=== PATIENT | male | born 1965 | race African-American/Black ===

== ENCOUNTER 2024-09-05 16:58 | Inpatient (IN) ==
--- NOTE | 2024-09-05 18:15 | Emergency Department Note ---
HPI - SOB/Dyspnea General Chief Complaint: Weakness Stated Complaint: N/V and fever Source: patient Mode of arrival: walk-in Limitations: no limitations History of Present Illness HPI Narrative: Patient is 55 years old male with no significant past medical history, Patient is a poor historian.Patient appears weak malnourished and unable to participate appropriately in my conversation. MD elicited complaint: Reports shortness of breath and cough Onset (ago): day(s) Timing: Reports constant Severity: mild-moderate Exacerbating factors: Reports nothing Relieving factors: Reports nothing Associated symptoms: Reports cough and abdominal pain Treatment prior to arrival: Reports none Related Data Home oxygen amount: none Home Medications Medication Instructions Recorded Confirmed No Known Home Medication 09/06/24 09/06/24 Allergies Allergy/AdvReac Type Severity Reaction Status Date / Time No Known Drug Allergies Allergy Verified 09/05/24 19:10 Review of Systems Status of ROS 10 or more systems reviewed and unremark able except as noted in history and below Constitutional Reports: fever, chills, malaise and change in sleep pattern Eyes Denies: change in vision, blurry vision, blind spots or light sensitivity Ears, nose, mouth, and throat Denies: throat pain, neck pain, throat swelling or difficulty swallowing Cardiovascular Denies: chest pain, palpitations, edema or swelling of feet/ankles Respiratory Reports: shortness of breath and cough Gastrointestinal Reports: abdominal pain, nausea and vomiting Genitourinary Reports: urinary urgency Musculoskeletal Denies: back pain, neck pain, extremity pain or extremity swelling Integumentary/Breast Denies: rash, itching, redness or skin pain Neurological Denies: headache, numbness in extremities or weakness in extremities Psychiatric Denies: anxiety, mood swings, panic attacks or change in sleep pattern Endocrine Denies: excessive urination, excessive thirst or fatigue Hematologic/Lymphatic Denies: easy bruising, easy bleeding or enlarged lymph nodes Allergic/Immunologic Denies: hives, throat swelling, tongue swelling or facial swelling [facility]SH [facility] Medical History (Updated 09/06/24 @ 12:29 by PRO Escobedo) Patient denies medical problems Social History Smoking status: current every day smoker Highest level of school completed/degree received: decline to answer Feel stressed/tense/nervous/anxious/difficulty sleeping: not at all Due to disability, difficulty making decisions: No Exam Exam: Ill-appearing patient is alert in semirecumbent position in hospital bed. Constitutional: Vital Signs - 24 hr 09/05/24 17:19 09/05/24 19:00 09/05/24 19:30 Temperature 97.1 F L Pulse Rate 104 H 101 H 93 H Respiratory Rate 24 16 16 Blood Pressure 125/81 131/77 124/84 Pulse Oximetry 95 96 96 Oxygen Delivery Me thod Room Air 09/05/24 20:00 09/05/24 21:00 09/05/24 22:00 Temperature Pulse Rate 97 H 93 H 99 H Respiratory Rate 16 17 16 Blood Pressure 120/75 130/84 121/76 Pulse Oximetry 97 99 97 Oxygen Delivery Me thod 09/05/24 23:00 09/06/24 00:00 Temperature Pulse Rate 94 H 99 H Respiratory Rate 18 19 Blood Pressure 98/69 108/72 Pulse Oximetry 100 99 Oxygen Delivery Me thod HENMT: normocephalic, head/scalp atraumatic, hearing grossly normal bilaterally and external ears normal Eyes: PERRL, EOMs intact bilaterally, conjunctivae normal and no scleral icterus Neck/C-Spine: visual inspection normal, trachea midline and cervical spine nontender Lymph: no lymphadenopathy noted and no lymphedema noted Chest: inspection of chest normal and palpation of chest normal Respiratory: breath sounds equal bilaterally, normal respiratory effort and clear to auscultation bilaterally Cardiovascular: normal heart rate noted, regular rhythm noted, no gallop and no rub Gastrointestinal: abdomen normal to inspection and abdomen soft to palpation Genitourinary: no CVA tenderness, bladder normal to palpation and external appearance normal Back/Pelvis: spine normal to inspection and no thoracic spine tenderness Extremities: normal to inspection, normal to palpation, no tenderness and full ROM Neurology: landcare facilitator II-XII intact, no movement abnormality noted and no focal motor deficit noted Psychiatry: mental status grossly normal, oriented x3, thought process normal and cooperative Feel stressed/tense/nervous/anxious/difficulty sleeping: not at all Due to disability, difficulty making decisions: No Skin: skin color normal, no rash and no lesions Course Course Hospital Course: This patient presents with complaint of weakness. And not feeling well for the past 3 days. Patient White blood cell count is 20.4 D-dimer is elevated at 2750 for this reason we obtained a CT of the chest which showed no PE. Potassium is slightly elevated at 5.7 we have treated the patient with Kayexalate, insulin, furosemide, calcium gluconate Patient BUN is elevated at 81 and creatinine of 2.2. This is likely due to dehydration patient has been started on fluid hydration. Patient is no known diabetic however his blood glucose is 446. Of also ordered hemoglobin A1c which is 8.0. Patient's lactic acid is 2.9. Serum Magnesium If 3.7. We have started the patient on sepsis protocol will be initiated fluid hydration and antibiotics. Vital Signs Vital signs: Vital Signs Temperature 97.1 F L 09/05/24 17:19 Pulse Rate 104 H 09/05/24 17:19 Respiratory Rate 24 09/05/24 17:19 Blood Pressure 125/81 09/05/24 17:19 Pulse Oximetry 95 09/05/24 17:19 Oxygen Delivery Method Room Air 09/05/24 17:19 Temperature 98.5 F 09/06/24 12:00 Pulse Rate 93 H 09/06/24 12:00 Respiratory Rate 20 09/06/24 12:00 Blood Pressure 108/64 09/06/24 13:15 Pulse Oximetry 90 L 09/06/24 12:00 Oxygen Delivery Method Room Air 09/06/24 12:00 Oxygen Flow Rate 2 09/06/24 01:12 MDM - SOB/Dyspnea Differential Diagnosis Differential diagnosis: Likely community acquired pneumonia and pulmonary embolism Lab Data Labs: Lab Results 09/05/24 09/05/24 09/05/24 Range/Units 18:50 20:06 20:35 WBC 20.4 H* (3.7-9.6) K/uL RBC 5.7 (4.40-5.80) M/uL Hgb 17.0 (14.0-17.4) gm/dL Hct 50.9 H (41.3-50.1) % MCV 89.7 (81.9-96.5) fl MCH 29.9 (27.6-33.7) pg MCHC 33.4 (33.0-35.7) g/dl RDW 13.2 (11.0-14.8) % Plt Count 289 (142-355) K/uL MPV 11.0 H (6.0-10.4) fl Gran % 77.4 H (49.1-73.1) % Lymph % (Auto) 3.9 L (17.6-39.05) % Maury % (Auto) 18.4 H (4.5-10.7) % Eos % (Auto) 0.0 (0.0-4.0) % Baso % (Auto) 0.3 (0.0-1.3) Lymph # (Auto) 0.8 (0.8-2.9) Maury # (Auto) 3.8 H (0.2-0.8) Eos # (Auto) 0.0 (0.0-0.3) Baso # (Auto) 0.1 (0.0-0.1) Absolute Gran (auto) 15.8 H (2.0-6.2) D-Dimer 2750 H (100-600) ng/mL Sodium 136 (136-145) mmol/L Potassium 5.7 H (3.6-5.2) mmol/L Chloride 99.0 (98-107) mmol/L Carbon Dioxide 27 (21-32) mmol/L Anion Gap 10.0 (4-14) mEq/L BUN 81 H* (7-18) mg/dL Creatinine 2.2 H (0.6-1.3) mg/dL Estimated GFR 33.7 (>59.9) Glucose 446 H* (70-110) mg/dL Hemoglobin A1c 8.0 H (4.8-6.0) % Lactic Acid 2.9 H (0.27-1.43) mmol/L Calcium 9.2 (8.5-10.1) mg/dL Phosphorus 3.8 (2.5-4.9) mg/dL Magnesium 3.7 H* (1.8-2.4) mg/dL Total Bilirubin 1.08 H (0.0-1.0) mg/dL AST 46 H (15-37) U/L ALT 41 (30-65) U/L Alkaline Phosphatase 77 (50-136) U/L Total Creatine Kinase 185 (39-308) U/L B-Natriuretic Peptide 43.1 (0-100) pg/mL Total Protein 9.0 H (6.4-8.2) g/dL Albumin 2.7 L (3.4-5.0) g/dL Urine Color Yellow (STRAW/YELL.) Urine Appearance Clear (CLEAR) Ur Specific Errol 1.010 (1.001-1.035) Urine Protein 4+ (NEGATIVE) Urine Glucose (UA) 4+ (NORMAL) Urine Ketones Moderate (NEGATIVE) Urine Occult Blood 4+ (NEG - TRACE) Urine Nitrite Negative (NEGATIVE) Urine Bilirubin Negative (NEGATIVE) Urine Urobilinogen Normal (NORMAL) Ur Leukocyte Esterase Negative (NEGATIVE) Urine RBC 0 - 2 (0 - 5) Urine WBC 0 - 2 ( 0 - 5) Ur Epithelial Cells Negative (Few/HPF) Amorphous Sediment Negative (Negative) Urine Bacteria Few (Negative) Urine Mucus Negative (Negative) Urine Trichomonas Negative (Negative) Urine Yeast Negative (Negative) Fluid pH .0 (5 - 9) Urine Opiates Screen (NEGATIVE) Urine Methadone Screen (NEGATIVE) Barbiturate Screen (NEGATIVE) Ur Phencyclidine Scrn (NEGATIVE) Amphetamines Screen (NEGATIVE) U Benzodiazepines Scrn (NEGATIVE) Urine Cocaine Screen (NEGATIVE) U Marijuana (THC) Screen (NEGATIVE) HIV 1&2 Antibody Non reactive (NonReactive) 09/06/24 Range/Units 00:01 WBC (3.7-9.6) K/uL RBC (4.40-5.80) M/uL Hgb (14.0-17.4) gm/dL Hct (41.3-50.1) % MCV (81.9-96.5) fl MCH (27.6-33.7) pg MCHC (33.0-35.7) g/dl RDW (11.0-14.8) % Plt Count (142-355) K/uL MPV (6.0-10.4) fl Gran % (49.1-73.1) % Lymph % (Auto) (17.6-39.05) % Maury % (Auto) (4.5-10.7) % Eos % (Auto) (0.0-4.0) % Baso % (Auto) (0.0-1.3) Lymph # (Auto) (0.8-2.9) Maury # (Auto) (0.2-0.8) Eos # (Auto) (0.0-0.3) Baso # (Auto) (0.0-0.1) Absolute Gran (auto) (2.0-6.2) D-Dimer (100-600) ng/mL Sodium (136-145) mmol/L Potassium (3.6-5.2) mmol/L Chloride (98-107) mmol/L Carbon Dioxide (21-32) mmol/L Anion Gap (4-14) mEq/L BUN (7-18) mg/dL Creatinine (0.6-1.3) mg/dL Estimated GFR (>59.9) Glucose (70-110) mg/dL Hemoglobin A1c (4.8-6.0) % Lactic Acid (0.27-1.43) mmol/L Calcium (8.5-10.1) mg/dL Phosphorus (2.5-4.9) mg/dL Magnesium (1.8-2.4) mg/dL Total Bilirubin (0.0-1.0) mg/dL AST (15-37) U/L ALT (30-65) U/L Alkaline Phosphatase (50-136) U/L Total Creatine Kinase (39-308) U/L B-Natriuretic Peptide (0-100) pg/mL Total Protein (6.4-8.2) g/dL Albumin (3.4-5.0) g/dL Urine Color (STRAW/YELL.) Urine Appearance (CLEAR) Ur Specific Errol (1.001-1.035) Urine Protein (NEGATIVE) Urine Glucose (UA) (NORMAL) Urine Ketones (NEGATIVE) Urine Occult Blood (NEG - TRACE) Urine Nitrite (NEGATIVE) Urine Bilirubin (NEGATIVE) Urine Urobilinogen (NORMAL) Ur Leukocyte Esterase (NEGATIVE) Urine RBC (0 - 5) Urine WBC ( 0 - 5) Ur Epithelial Cells (Few/HPF) Amorphous Sediment (Negative) Urine Bacteria (Negative) Urine Mucus (Negative) Urine Trichomonas (Negative) Urine Yeast (Negative) Fluid pH (5 - 9) Urine Opiates Screen Neg. (NEGATIVE) Urine Methadone Screen Neg. (NEGATIVE) Barbiturate Screen Neg. (NEGATIVE) Ur Phencyclidine Scrn Neg. (NEGATIVE) Amphetamines Screen Neg. (NEGATIVE) U Benzodiazepines Scrn Neg. (NEGATIVE) Urine Cocaine Screen Pos. (NEGATIVE) U Marijuana (THC) Screen Neg. (NEGATIVE) HIV 1&2 Antibody (NonReactive) Imaging Data Imaging ordered: Chest x-ray, CT scan - abdomen and other (CT angiogram PE protocol) Attestation: I have reviewed the pertinent imaging results. Radiologist's impression: EXAM: CT ANGIO CHEST PE PROTOCOL HISTORY: Shortness of breath COMPARISON: Chest radiograph series from September 05, 2024 TECHNIQUE: Axial CT images of the chest were obtained after the administration of IV contrast utilizing a CTA protocol. 3D MIPS were performed and reviewed for further evaluation. Radiation dose: 444.2 mGy-cm total DLP FINDINGS: No significant pericardial effusion. No mediastinal or hilar lymphadenopathy. Aorta is normal in caliber without dissection. Pulmonary arteries are normal in caliber without filling defects to suggest a pulmonary embolus. Airways are widely patent. Thyroid appears normal. No pleural effusion. Mild centrilobular emphysema. Centrilobular infiltrates in the middle lobe, lingula and lower lobes; [id number]. No pneumothorax. No concerning lung parenchymal lesion identified. Patchy low-attenuation areas in the spleen; nonspecific. Otherwise, the imaged portion of the upper abdomen is unremarkable. No acute osseous abnormality. IMPRESSION: 1. No pulmonary embolus identified. 2. Centrilobular infiltrates in the middle lobe, lingula and lower lobes; [id number]. Findings could represent an atypical/viral infectious process. 3. Mild centrilobular emphysema. 4. Nonspecific patchy areas of decreased attenuation in the spleen. Findings could represent a normal variant appearance but could be further evaluated for areas of ischemia with a dedicated multiphase contrast-enhanced study of the upper abdomen. Discharge Plan Discharge Patient Disposition: Admitted As Inpatient Condition: Other Clinical Impression: Sepsis, Pneumonia, Hyperkalemia, Leukocytosis, Acute kidney injury, Uncontrolled diabetes mellitus Interventions: ED Discharge Assessment Last Done: 09/06/24 02:00 ED Discharge Vital Sign Last Done: 09/06/24 02:00 Emergency Department Charge Sheet Last Done: 09/05/24 23:55 Time of Disposition: 00:23 Discharge Date/Time: 09/06/24 02:00
[2024-09-05 19:11] LABS: Monocytes #(Absolute)- Auto 3.8 (0.2-0.8)
[2024-09-05 19:12] LABS: Basophils #(Absolute) Auto 0.1 (0.0-0.1); Basophils%(Percent) Auto 0.3 (0.0-1.3); Granulocytes % - Auto 77.4 % (49.1-73.1); Granulocytes#(Absolute)- Auto 15.8 (2.0-6.2); Hematocrit 50.9 % (41.3-50.1); Mean Corpuscular Volume 89.7 fl (81.9-96.5); Monocytes %(Percent)- Auto 18.4 % (4.5-10.7); Platelet Count 289 K/uL (142-355)
[2024-09-05 19:14] LABS: Potassium 5.7 mmol/L (3.6-5.2)
[2024-09-05 19:21] LABS: White Blood Count 20.4 K/uL (3.7-9.6)
[2024-09-05] MEDS ORDERED: 0.9 % SODIUM CHLORIDE 1000 ML 1,000 ML IV SCH (20:15)
[2024-09-05] MEDS ORDERED: VANCOMYCIN HCL 1,000 MG VIAL IV ONE (20:28)
[2024-09-05] MEDS ORDERED: 0.9 % SODIUM CHLORIDE MB+ 50 ML IV ONE (20:28)
[2024-09-05] MEDS ORDERED: 0.9 % SODIUM CHLORIDE 250 ML IV ONE (20:28)
[2024-09-05] MEDS ORDERED: CEFTRIAXONE SODIUM 1 GM VIAL ONE (20:28)
[2024-09-05] MEDS ORDERED: 0.9 % SODIUM CHLORIDE 1000 ML 1,000 ML IV ONE ×2 (20:28→20:35)
[2024-09-05] MEDS: SODIUM CHLORIDE MB 0.9% IV SCH (20:31)
[2024-09-05] MEDS ORDERED: CEFEPIME HCL 1 GM VIAL ONE (20:31)
[2024-09-05] MEDS: CEFEPIME HCL IV SCH (20:31)
[2024-09-05] MEDS: 0.9 % SODIUM CHLORIDE 1000 ML 1,000 ML IV ONE (20:34)
[2024-09-05 21:08] LABS: Urine Appearance CLEAR (CLEAR); Urine Blood 4+ (NEG - TRACE); Urine Color YELLOW (STRAW/YELL.); Urine Urobilinogen Normal (NORMAL)
[2024-09-05 21:20] LABS: Urine Amorphous Sediment Negative (Negative); Urine Yeast Negative (Negative)
[2024-09-05] MEDS: VANCOMYCIN/WATER 750 MG 750 MG/150 ML PIGGYBACK IV SCH (21:54)
[2024-09-05] MEDS ORDERED: CALCIUM GLUCONATE 1,000 MG/10 ML VIAL ONE (23:29)
[2024-09-05] MEDS ORDERED: SODIUM BICARBONATE 1 MEQ/ML VIAL ONE (23:30)
[2024-09-05] MEDS ORDERED: FUROSEMIDE 40 MG/4 ML VIAL ONE (23:30)
[2024-09-05] MEDS ORDERED: 0.9 % SODIUM CHLORIDE 100ML 100 ML IV ONE (23:31)
[2024-09-05] MEDS ORDERED: SODIUM POLYSTYRENE SULFONATE 15 GM/60 ML ORAL.SUSP ONE (23:36)
[2024-09-05] MEDS ORDERED: DEXTROSE 5 % IN WATER 1,000 ML IV ONE (23:40)
[2024-09-05] MEDS: CALCIUM GLUCONATE 1,000 MG in 0.9 % SODIUM CHLORIDE 100ML 100 ML IV ONE (23:59)
[2024-09-06] MEDS ORDERED: ONDANSETRON HCL/PF 4 MG/2 ML VIAL INJ PRN (00:04)
[2024-09-06] MEDS ORDERED: ACETAMINOPHEN 500 MG TABLET PO PRN (00:04)
[2024-09-06] MEDS ORDERED: 0.9 % SODIUM CHLORIDE 1000 ML 1,000 ML IV SCH (00:30)
[2024-09-06] MEDS: 0.9 % SODIUM CHLORIDE 1000 ML 1,000 ML IV ONE (00:46)
[2024-09-06] MEDS: SODIUM BICARBONATE IV SCH (01:40)
[2024-09-06] MEDS: FUROSEMIDE 40 MG/4 ML VIAL IV ONE (01:40)
[2024-09-06] MEDS: WATER IV SCH (01:40)
[2024-09-06] MEDS: DEXTROSE 5% IV SCH (01:40)
[2024-09-06] MEDS: SODIUM POLYSTYRENE SULFONATE 15 GM/60 ML ORAL.SUSP PO ONE (01:45)
[2024-09-06] MEDS: 0.9 % SODIUM CHLORIDE 1000 ML 1,000 ML IV SCH (02:28)
[2024-09-06] MEDS: VANCOMYCIN HCL 1 MG in 0.9 % SODIUM CHLORIDE 250 ML IV SCH (03:23)
[2024-09-06 04:42] LABS: Amphetamine Screen Urine NEG. (NEGATIVE); Cannabinoid Screen Urine NEG. (NEGATIVE); Cocaine Screen Urine POS. (NEGATIVE); Methadone Screen Urine NEG. (NEGATIVE); Opiate Screen Urine NEG. (NEGATIVE)
[2024-09-06 05:08] LABS: Monocytes #(Absolute)- Auto 4.6 (0.2-0.8)
[2024-09-06 05:10] LABS: Basophils%(Percent) Auto 0.1 (0.0-1.3); Granulocytes % - Auto 76.8 % (49.1-73.1); Granulocytes#(Absolute)- Auto 18.4 (2.0-6.2); Hematocrit 47.1 % (41.3-50.1); Mean Corpuscular Volume 89.3 fl (81.9-96.5); Monocytes %(Percent)- Auto 19.2 % (4.5-10.7); Platelet Count 313 K/uL (142-355)
[2024-09-06 05:28] LABS: White Blood Count 24.5 K/uL (3.7-9.6)
[2024-09-06 05:36] LABS: Potassium 4.1 mmol/L (3.6-5.2)
[2024-09-06] MEDS: SODIUM CHLORIDE MB 0.9% IV SCH (05:57)
[2024-09-06] MEDS: CEFEPIME HCL IV SCH (05:57)
[2024-09-06] MEDS: ENOXAPARIN SODIUM 40 MG/0.4 ML SYRINGE SUBQ SCH (12:18)
--- NOTE | 2024-09-06 12:35 | History & Physical Report ---
H&P: HPI History of Present Illness Chief complaint: pneumonia Narrative: Patient is 55 years old male with no significant past medical history, Patient is a poor historian. Patient appears weak malnourished and unable to participate appropriately in my conversation. He states it hurts when he coughs, mucus is b eing expelled, experiencing flu symptoms, and provider observed wheezing on inspiratory and expiratory. Lab work reflects septic pneumonia and lactic acidosis. Admitted patient to med/surg as inpatient for treatment. Review of Systems Status of ROS 10 or more systems reviewed and unremark able except as noted in history and below Constitutional Reports: fever, chills, malaise and change in sleep pattern; Denies: fatigue Eyes Denies: change in vision, blurry vision, blind spots or light sensitivity Ears, nose, mouth, and throat Reports: dry mouth; Denies: throat pain, neck pain, throat swelling or difficulty swallowing Cardiovascular Reports: shortness of breath with exertion; Denies: chest pain, palpitations, edema or swelling of feet/ankles Respiratory Reports: shortness of breath, cough, wheezing and chest congestion Gastrointestinal Reports: abdominal pain and vomiting; Denies: nausea or difficulty swallowing Genitourinary Reports: urinary urgency Musculoskeletal Denies: back pain, neck pain, extremity pain or extremity swelling Integumentary/Breast Denies: rash, itching, redness or skin pain Neurological Denies: headache, numbness in extremities or weakness in extremities Psychiatric Denies: anxiety, mood swings, panic attacks or change in sleep pattern Endocrine Denies: excessive urination, excessive thirst or fatigue Hematologic/Lymphatic Denies: easy bruising, easy bleeding or enlarged lymph nodes Allergic/Immunologic Denies: hives, throat swelling, tongue swelling or facial swelling [facility] Medical History (Updated 09/06/24 @ 12:29 by PRO Escobedo) Patient denies medical problems Social History Smoking status: current every day smoker Highest level of school completed/degree received: decline to answer Feel stressed/tense/nervous/anxious/difficulty sleeping: not at all Due to disability, difficulty making decisions: No Meds Home Medications and Allergies Home Medications Medication Instructions Recorded Confirmed Type No Known Home Medication 09/06/24 09/06/24 History Allergies Allergy/AdvReac Type Severity Reaction Status Date / Time No Known Drug Allergies Allergy Verified 09/05/24 19:10 Exam Exam: Patient in low byrne's position upon entering room for exam. Patient Constitutional: abnormal general appearance (chronically ill), (lethargic) and (appears older than stated age), distress noted (mild), average body habitus, no limitations and alert Vital Signs - 24 hr 09/05/24 17:19 09/05/24 19:00 09/05/24 19:30 Temperature 97.1 F L Pulse Rate 104 H 101 H 93 H Pulse Rate [Brachi al] Respiratory Rate 24 16 16 Blood Pressure 125/81 131/77 124/84 Blood Pressure [Le ft Arm] Pulse Oximetry 95 96 96 Oxygen Delivery Me thod Room Air Oxygen Flow Rate 09/05/24 20:00 09/05/24 21:00 09/05/24 22:00 Temperature Pulse Rate 97 H 93 H 99 H Pulse Rate [Brachi al] Respiratory Rate 16 17 16 Blood Pressure 120/75 130/84 121/76 Blood Pressure [Le ft Arm] Pulse Oximetry 97 99 97 Oxygen Delivery Me thod Oxygen Flow Rate 09/05/24 23:00 09/06/24 00:00 09/06/24 01:00 Temperature Pulse Rate 94 H 99 H 92 H Pulse Rate [Brachi al] Respiratory Rate 18 19 17 Blood Pressure 98/69 108/72 125/81 Blood Pressure [Le ft Arm] Pulse Oximetry 100 99 98 Oxygen Delivery Me thod Oxygen Flow Rate 09/06/24 01:12 09/06/24 01:40 09/06/24 01:59 Temperature 97.9 F Pulse Rate Pulse Rate [Brachi al] 93 H Respiratory Rate 17 15 Blood Pressure 108/72 Blood Pressure [Le ft Arm] 146/85 Pulse Oximetry 92 L Oxygen Delivery Me thod Nasal Cannula Room Air Oxygen Flow Rate 2 09/06/24 02:00 09/06/24 02:00 09/06/24 03:19 Temperature 97.9 F Pulse Rate 99 H 99 H Pulse Rate [Brachi al] Respiratory Rate 18 18 Blood Pressure 118/82 146/85 146/85 Blood Pressure [Le ft Arm] Pulse Oximetry 97 97 Oxygen Delivery Me thod Oxygen Flow Rate 09/06/24 08:00 Temperature 98.7 F Pulse Rate Pulse Rate [Brachi al] 92 H Respiratory Rate 19 Blood Pressure Blood Pressure [Le ft Arm] 119/79 Pulse Oximetry 91 L Oxygen Delivery Me thod Room Air Oxygen Flow Rate HENMT: normocephalic, head/scalp atraumatic, hearing grossly normal bilaterally and external ears normal Eyes: PERRL, EOMs intact bilaterally, conjunctivae normal and no scleral icterus Neck/C-Spine: visual inspection normal, trachea midline and cervical spine nontender Lymph: no lymphadenopathy noted and no lymphedema noted Chest: inspection of chest normal and palpation of chest normal Respiratory: breath sounds equal bilaterally, normal respiratory effort, auscultation abnormal (diminished breath sound) and wheezing noted (expiratory wheezes) and (inspiratory wheezes) Cardiovascular: normal heart rate noted, regular rhythm noted, no gallop and no rub Gastrointestinal: abdomen normal to inspection and abdomen soft to palpation Genitourinary: no CVA tenderness, bladder normal to palpation and external appearance normal Back/Pelvis: spine normal to inspection and no thoracic spine tenderness Extremities: normal to inspection, normal to palpation, no tenderness and full ROM 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, no movement abnormality noted and no focal motor deficit noted Psychiatry: mental status grossly normal, oriented x3, thought process normal and cooperative Skin: skin color normal, no rash and no lesions Assessment and Plan Assessment and Plan (1) Sepsis due to pneumonia: Code(s): J18.9 - Pneumonia, unspecified organism; A41.9 - Sepsis, unspecified organism (2) Lactic acidosis: Code(s): E87.20 - Acidosis, unspecified (3) Pleurisy: Code(s): R09.1 - Pleurisy (4) Cough: Qualifiers: Cough type: acute Qualified Code(s): R05.1 - Acute cough Code(s): R05.9 - Cough, unspecified (5) Phlegm in throat: Code(s): R09.89 - Other specified symptoms and signs involving the circulatory and respiratory systems Plan Sodium Chloride 1,000 mls @ 100 mls/hr IV CONT Vancomycin/Water 750 mg in 150 mls @ 150 mls/hr IV Q24H Cefepime Hcl 1 gm in Sodium Chloride 50 mls @ 50 mls/hr IV Q8H Enoxaparin Sodium 40 mg SUBQ DAILY Acetaminophen 500 mg PO Q6H PRN Ibuprofen 600 mg PO Q6H PRN Ondansetron Hcl 4 mg INJ Q4H PRN Repeat in AM: CXR 2 View; Lactic Acid; CBC; and CMP Results Labs Labs: CBC WBC 24.5 K/uL (3.7-9.6) H* 09/06/24 04:45 RBC 5.3 M/uL (4.40-5.80) 09/06/24 04:45 Hgb 15.6 gm/dL (14.0-17.4) 09/06/24 04:45 Hct 47.1 % (41.3-50.1) 09/06/24 04:45 MCV 89.3 fl (81.9-96.5) 09/06/24 04:45 MCH 29.5 pg (27.6-33.7) 09/06/24 04:45 MCHC 33.1 g/dl (33.0-35.7) 09/06/24 04:45 RDW 12.9 % (11.0-14.8) 09/06/24 04:45 Plt Count 313 K/uL (142-355) 09/06/24 04:45 MPV 10.2 fl (6.0-10.4) 09/06/24 04:45 Gran % 76.8 % (49.1-73.1) H 09/06/24 04:45 Lymph % (Auto) 3.9 % (17.6-39.05) L 09/06/24 04:45 [place] % (Auto) 19.2 % (4.5-10.7) H 09/06/24 04:45 Eos % (Auto) 0.0 % (0.0-4.0) 09/06/24 04:45 Baso % (Auto) 0.1 (0.0-1.3) 09/06/24 04:45 Lymph # (Auto) 0.9 (0.8-2.9) 09/06/24 04:45 [place] # (Auto) 4.6 (0.2-0.8) H 09/06/24 04:45 Eos # (Auto) 0.0 (0.0-0.3) 09/06/24 04:45 Baso # (Auto) 0.0 (0.0-0.1) 09/06/24 04:45 Absolute Gran (auto) 18.4 (2.0-6.2) H 09/06/24 04:45 BMP Sodium 148 mmol/L (136-145) H 09/06/24 04:45 Potassium 4.1 mmol/L (3.6-5.2) 09/06/24 04:45 Chloride 110.0 mmol/L (98-107) H 09/06/24 04:45 Carbon Dioxide 27 mmol/L (21-32) 09/06/24 04:45 Anion Gap 11.0 mEq/L (4-14) 09/06/24 04:45 BUN 62 mg/dL (7-18) H 09/06/24 04:45 Creatinine 1.8 mg/dL (0.6-1.3) H 09/06/24 04:45 Estimated GFR 42.8 (>59.9) 09/06/24 04:45 Glucose 204 mg/dL (70-110) H 09/06/24 04:45 Hemoglobin A1c 8.0 % (4.8-6.0) H 09/05/24 18:50 Calcium 9.0 mg/dL (8.5-10.1) 09/06/24 04:45 Phosphorus 3.8 mg/dL (2.5-4.9) 09/05/24 20:06 Magnesium 3.7 mg/dL (1.8-2.4) H* 09/05/24 20:06 Total Bilirubin 1.11 mg/dL (0.0-1.0) H 09/06/24 04:45 AST 49 U/L (15-37) H 09/06/24 04:45 ALT 37 U/L (30-65) 09/06/24 04:45 Alkaline Phosphatase 72 U/L (50-136) 09/06/24 04:45 Total Protein 8.4 g/dL (6.4-8.2) H 09/06/24 04:45 Albumin 2.5 g/dL (3.4-5.0) L 09/06/24 04:45 Liver Function Total Bilirubin 1.11 mg/dL (0.0-1.0) H 09/06/24 04:45 AST 49 U/L (15-37) H 09/06/24 04:45 ALT 37 U/L (30-65) 09/06/24 04:45 Alkaline Phosphatase 72 U/L (50-136) 09/06/24 04:45 Total Protein 8.4 g/dL (6.4-8.2) H 09/06/24 04:45 Albumin 2.5 g/dL (3.4-5.0) L 09/06/24 04:45 Urine Urine Color Yellow (STRAW/YELL.) 09/05/24 20:35 Urine Appearance Clear (CLEAR) 09/05/24 20:35 Ur Specific [place] 1.010 (1.001-1.035) 09/05/24 20:35 Urine Protein 4+ (NEGATIVE) 09/05/24 20:35 Urine Glucose (UA) 4+ (NORMAL) 09/05/24 20:35 Urine Ketones Moderate (NEGATIVE) 09/05/24 20:35 Urine Occult Blood 4+ (NEG - TRACE) 09/05/24 20: Urine Nitrite Negative (NEGATIVE) 09/05/24 20: Urine Bilirubin Negative (NEGATIVE) 09/05/24 20:35 Urine Urobilinogen Normal (NORMAL) 09/05/24 20:35 Ur Leukocyte Esterase Negative (NEGATIVE) 09/05/24 20:35 Imaging Imaging ordered: Chest x-ray, CT scan - abdomen and CT scan - chest Radiologist's impression: XR CHEST 2V HISTORY: SOB, COUGH; CV/NB COMPARISON: 12/01/2022 FINDINGS: The trachea is midline. The cardiac silhouette is unremarkable . The lungs are clear without focal infiltrate or effusion. The bony thorax is unremarkable. IMPRESSION: Normal chest CT ABDOMEN PELVIS WO CON HISTORY: Abdominal pain, diarrhea COMPARISON: June 27, 2021 TECHNIQUE: Non-contrasted axial CT images of the abdomen and pelvis were obtained and reformatted into coronal and sagittal planes for further evaluation. Radiation dose: 523.1 mGy-cm total DLP FINDINGS: Diffuse bronchial wall thickening. Infiltrate in the lower aspect of the left lung. Few tiny patchy areas of airspace disease at the periphery of the right lower lobe. Stomach appears normal. Cyst in the left hepatic lobe. Otherwise, unremarkable appearance of the liver. Patchy low-attenuation areas in the spleen; nonspecific. Pancreas and adrenal glands are unremarkable. Gallbladder appears normal. No intra or extrahepatic biliary dilatation. Unremarkable appearance of the kidneys. No hydronephrosis, hydroureter or ureteral calculus. Unremarkable appearance of the urinary bladder. Normal appearance of the small and large bowel. Nonspecific enlargement of the prostate gland. No evidence of acute appendicitis. No pneumoperitoneum. No significant fluid collection. No adenopathy. No acute osseous abnormality. Chronic pars defects at L5 with grade 1 anterolisthesis. IMPRESSION: 1. Nonspecific patchy areas of decreased attenuation in the spleen. Findings could represent a normal variant appearance but could be further evaluated for areas of ischemia with a contrast-enhanced study. 2. Diffuse bronchial wall thickening. Infiltrate in the lower aspect of the left lung. Few tiny patchy areas of airspace disease at the periphery of the right lower lobe. Findings could represent the sequela of an atypical/viral infectious process or multifocal pneumonia. 3. Nonspecific enlargement of the prostate gland. CT ANGIO CHEST PE PROTOCOL HISTORY: Shortness of breath COMPARISON: Chest radiograph series from September 05, 2024 TECHNIQUE: Axial CT images of the chest were obtained after the administration of IV contrast utilizing a CTA protocol. 3D MIPS were performed and reviewed for further evaluation. Radiation dose: 444.2 mGy-cm total DLP FINDINGS: No significant pericardial effusion. No mediastinal or hilar lymphadenopathy. Aorta is normal in caliber without dissection. Pulmonary arteries are normal in caliber without filling defects to suggest a pulmonary embolus. Airways are widely patent. Thyroid appears normal. No pleural effusion. Mild centrilobular emphysema. Centrilobular infiltrates in the middle lobe, lingula and lower lobes; [id number]. No pneumothorax. No concerning lung parenchymal lesion identified. Patchy low-attenuation areas in the spleen; nonspecific. Otherwise, the imaged portion of the upper abdomen is unremarkable. No acute osseous abnormality. IMPRESSION: 1. No pulmonary embolus identified. 2. Centrilobular infiltrates in the middle lobe, lingula and lower lobes; [id number]. Findings could represent an atypical/viral infectious process. 3. Mild centrilobular emphysema. 4. Nonspecific patchy areas of decreased attenuation in the spleen. Findings could represent a normal variant appearance but could be further evaluated for areas of ischemia with a dedicated multiphase contrast-enhanced study of the upper abdomen.
[2024-09-07 05:22] LABS: Eosinophils%(Percent) Auto 0.1 % (0.0-4.0); Granulocytes#(Absolute)- Auto 17.6 (2.0-6.2); Monocytes #(Absolute)- Auto 3.9 (0.2-0.8)
[2024-09-07 05:24] LABS: Basophils%(Percent) Auto 0.2 (0.0-1.3); Granulocytes % - Auto 78.2 % (49.1-73.1); Hematocrit 38.6 % (41.3-50.1); Monocytes %(Percent)- Auto 17.2 % (4.5-10.7); Platelet Count 357 K/uL (142-355)
[2024-09-07 05:42] LABS: White Blood Count 22.4 K/uL (3.7-9.6)
[2024-09-07 05:46] LABS: Potassium 4.3 mmol/L (3.6-5.2)
[2024-09-07] MEDS: MUPIROCIN 22 GM OINT...G. TOPICAL SCH (11:06)
--- NOTE | 2024-09-07 13:39 | Progress Note ---
Progress Note: Subjective Subjective Interval history: Patient is a 59 year old male admitted to med/surg as inpatient for pneumonia. Patient has spouse at bedside this AM. Patient is not ambulating to go to the restroom, he is wearing a brief, patient also has 3 urinals around his bed. Spouse voiced a concern about "jared" on patient's penis and wanted to know why it was like that. Provider and nurse evaluated area of concern and deduced it was a cut of some kind prior to admission to the hospital. Area of concern will be cleaned, dried, and medicated. Exam Exam: Patient in low byrne's position upon entering room for exam. Spouse at bedside. Constitutional: abnormal general appearance (chronically ill), (lethargic) and (appears older than stated age), distress noted (mild), average body habitus, no limitations and alert Vital Signs - 24 hr 09/06/24 14:57 09/06/24 22:00 09/07/24 06:00 Temperature 100.1 F H 98.4 F 98.0 F Pulse Rate [Brachi al] 99 H 73 68 Respiratory Rate 20 18 19 Blood Pressure [Le ft Arm] 119/70 136/61 116/69 Pulse Oximetry 92 L 94 L 94 L Oxygen Delivery Me thod Room Air Room Air Room Air 09/07/24 08:11 09/07/24 12:00 Temperature 98.4 F 98.9 F Pulse Rate [Brachi al] 84 79 Respiratory Rate 19 18 Blood Pressure [Le ft Arm] 151/85 165/92 Pulse Oximetry 93 L 96 Oxygen Delivery Me thod Room Air Room Air HENMT: normocephalic, head/scalp atraumatic, hearing grossly normal bilaterally and external ears normal Eyes: PERRL, EOMs intact bilaterally, conjunctivae normal and no scleral icterus Neck/C-Spine: visual inspection normal, trachea midline and cervical spine nontender Lymph: no lymphadenopathy noted and no lymphedema noted Chest: inspection of chest normal and palpation of chest normal Respiratory: breath sounds equal bilaterally, normal respiratory effort, auscultation abnormal (diminished breath sound) and wheezing noted (expiratory wheezes) and (inspiratory wheezes) Cardiovascular: normal heart rate noted, regular rhythm noted, no gallop and n o rub Gastrointestinal: abdomen normal to inspection, abdomen soft to palpation and tender to palpation (mild), (LLQ), (RLQ) and (periumbilical) Genitourinary: no CVA tenderness, bladder normal to palpation and external appearance abnormal (possible "cut" on penile area) Back/Pelvis: spine normal to inspection and no thoracic spine tenderness Extremities: normal to inspection, normal to palpation, no tenderness and full ROM 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, no movement abnormality noted and no focal motor deficit noted Psychiatry: mental status grossly normal, oriented x3, thought process normal and cooperative Skin: skin color normal, no rash and no lesions Progress Note: Objective Labs Labs: CBC WBC 22.4 K/uL (3.7-9.6) H* 09/07/24 05:10 RBC 4.2 M/uL (4.40-5.80) L 09/07/24 05:10 Hgb 12.5 gm/dL (14.0-17.4) L 09/07/24 05:10 Hct 38.6 % (41.3-50.1) L 09/07/24 05:10 MCV 91.0 fl (81.9-96.5) 09/07/24 05:10 MCH 29.5 pg (27.6-33.7) 09/07/24 05:10 MCHC 32.4 g/dl (33.0-35.7) L 09/07/24 05:10 RDW 13.2 % (11.0-14.8) 09/07/24 05:10 Plt Count 357 K/uL (142-355) H 09/07/24 05:10 MPV 10.2 fl (6.0-10.4) 09/07/24 05:10 Gran % 78.2 % (49.1-73.1) H 09/07/24 05:10 Lymph % (Auto) 4.3 % (17.6-39.05) L 09/07/24 05:10 [place] % (Auto) 17.2 % (4.5-10.7) H 09/07/24 05:10 Eos % (Auto) 0.1 % (0.0-4.0) 09/07/24 05:10 Baso % (Auto) 0.2 (0.0-1.3) 09/07/24 05:10 Lymph # (Auto) 1.0 (0.8-2.9) 09/07/24 05:10 [place] # (Auto) 3.9 (0.2-0.8) H 09/07/24 05:10 Eos # (Auto) 0.0 (0.0-0.3) 09/07/24 05:10 Baso # (Auto) 0.0 (0.0-0.1) 09/07/24 05:10 Absolute Gran (auto) 17.6 (2.0-6.2) H 09/07/24 05:10 BMP Sodium 149 mmol/L (136-145) H 09/07/24 05:00 Potassium 4.3 mmol/L (3.6-5.2) 09/07/24 05:00 Chloride 117.0 mmol/L (98-107) H 09/07/24 05:00 Carbon Dioxide 24 mmol/L (21-32) 09/07/24 05:00 Anion Gap 8.0 mEq/L (4-14) 09/07/24 05:00 BUN 32 mg/dL (7-18) H 09/07/24 05:00 Creatinine 1.5 mg/dL (0.6-1.3) H 09/07/24 05:00 Estimated GFR 53.3 (>59.9) 09/07/24 05:00 Glucose 298 mg/dL (70-110) H 09/07/24 05:00 Hemoglobin A1c 8.0 % (4.8-6.0) H 09/05/24 18:50 Calcium 8.1 mg/dL (8.5-10.1) L 09/07/24 05:00 Phosphorus 3.8 mg/dL (2.5-4.9) 09/05/24 20:06 Magnesium 3.7 mg/dL (1.8-2.4) H* 09/05/24 20:06 Total Bilirubin 0.53 mg/dL (0.0-1.0) 09/07/24 05:00 AST 42 U/L (15-37) H 09/07/24 05:00 ALT 24 U/L (30-65) L 09/07/24 05:00 Alkaline Phosphatase 60 U/L (50-136) 09/07/24 05:00 Total Protein 6.8 g/dL (6.4-8.2) 09/07/24 05:00 Albumin 1.9 g/dL (3.4-5.0) L 09/07/24 05:00 Liver Function Total Bilirubin 0.53 mg/dL (0.0-1.0) 09/07/24 05:00 AST 42 U/L (15-37) H 09/07/24 05:00 ALT 24 U/L (30-65) L 09/07/24 05:00 Alkaline Phosphatase 60 U/L (50-136) 09/07/24 05:00 Total Protein 6.8 g/dL (6.4-8.2) 09/07/24 05:00 Albumin 1.9 g/dL (3.4-5.0) L 09/07/24 05:00 Urine Urine Color Yellow (STRAW/YELL.) 09/05/24 20:35 Urine Appearance Clear (CLEAR) 09/05/24 20:35 Ur Specific [place] 1.010 (1.001-1.035) 09/05/24 20:35 Urine Protein 4+ (NEGATIVE) 09/05/24 20:35 Urine Glucose (UA) 4+ (NORMAL) 09/05/24 20:35 Urine Ketones Moderate (NEGATIVE) 09/05/24 20:35 Urine Occult Blood 4+ (NEG - TRACE) 09/05/24 20:35 Urine Nitrite Negative (NEGATIVE) 09/05/24 20:35 Urine Bilirubin Negative (NEGATIVE) 09/05/24 20:35 Urine Urobilinogen Normal (NORMAL) 09/05/24 20:35 Ur Leukocyte Esterase Negative (NEGATIVE) 09/05/24 20:35 Progress Note: A&P Assessment and Plan (1) Sepsis due to pneumonia: (2) Lactic acidosis: (3) Pleurisy: (4) Cough: Qualifiers: Cough type: acute Qualified Code(s): R05.1 - Acute cough (5) Phlegm in throat: Plan Abdominal US ordered Clean, dry, medicate penile wound. Fall Risk Details Bright Fall Scale Risk Level: Moderate Fall Risk Current Medications: Current Medications Acetaminophen (Acetaminophen 500 Mg Tablet) 500 mg PO Q6H PRN PRN Reason: Fever OF 100.5 OR GREATER Enoxaparin Sodium (Enoxaparin Sodium 40 Mg/0.4 Ml Syringe) 40 mg SUBQ DAILY [facility] Last Admin: 09/07/24 09:30 Dose: 40 mg Guaifenesin (Guaifenesin 100 Mg/5 Ml Liquid) 400 mg PO Q4H PRN PRN Reason: cough Vancomycin/PEG/[place]/Lysine/Water (Vancomycin/Water 750 Mg) 750 mg in 150 mls @ 150 mls/hr IV Q24H [facility] Last Infusion: 09/06/24 22:36 Dose: Infused Sodium Chloride (Sodium Chloride) 1,000 mls @ 100 mls/hr IV CONT [facility] Last Admin: 09/07/24 09:31 Dose: 100 mls/hr Cefepime HCl 1 gm/ Sodium (Chloride) 50 mls @ 50 mls/hr IV Q8H [facility] Last Infusion: 09/07/24 06:06 Dose: Infused Ibuprofen (Ibuprofen 400 Mg Tablet) 600 mg PO Q6H PRN PRN Reason: Pain Mupirocin (Mupirocin 22 Gm Oint...G.) 5 gm TOPICAL Q12H [facility] Last Admin: 09/07/24 11:06 Dose: 5 gm Ondansetron HCl (Ondansetron Hcl/Pf 4 Mg/2 Ml Vial) 4 mg INJ Q4H PRN PRN Reason: Nausea vomiting Time Spent With Patient Time: Total time spent is greater than 50% in coordination of care (as documented) at patient's floor/unit and/or counseling patient:
[2024-09-08 05:00] LABS: Basophils #(Absolute) Auto 0.1 (0.0-0.1)
[2024-09-08 05:02] LABS: Basophils%(Percent) Auto 0.2 (0.0-1.3); Eosinophils%(Percent) Auto 0.1 % (0.0-4.0); Granulocytes % - Auto 77.4 % (49.1-73.1); Granulocytes#(Absolute)- Auto 19.8 (2.0-6.2); Hematocrit 42.4 % (41.3-50.1); Mean Corpuscular Volume 90.7 fl (81.9-96.5); Monocytes #(Absolute)- Auto 4.5 (0.2-0.8); Monocytes %(Percent)- Auto 17.7 % (4.5-10.7); Platelet Count 422 K/uL (142-355)
[2024-09-08 05:35] LABS: White Blood Count 25.5 K/uL (3.7-9.6)
--- NOTE | 2024-09-08 09:58 | Internal Medicine Prog Note ---
Progress Note: A&P Assessment and Plan (1) Sepsis due to pneumonia: Assessment and Plan: severe sepsis with elevated lactate. Continue Vanc/cefepime. Consider adding Doxy/azithromycin. Adding guaifenesin and DuoNebs. (2) Lactic acidosis: Assessment and Plan: fluids. abx. (3) Pleurisy: Assessment and Plan: adding steroids. (4) Cough: Assessment and Plan: Robitussin. Qualifiers: Cough type: acute Qualified Code(s): R05.1 - Acute cough Fall Risk Details Bright Fall Scale Risk Level: Moderate Fall Risk Current Medications: Current Medications Acetaminophen (Acetaminophen 500 Mg Tablet) 500 mg PO Q6H PRN PRN Reason: Fever OF 100.5 OR GREATER Enoxaparin Sodium (Enoxaparin Sodium 40 Mg/0.4 Ml Syringe) 40 mg SUBQ DAILY [facility] Last Admin: 09/08/24 08:59 Dose: 40 mg Guaifenesin (Guaifenesin 100 Mg/5 Ml Liquid) 400 mg PO Q4H PRN PRN Reason: cough Vancomycin/PEG/NADA/Lysine/Water (Vancomycin/Water 750 Mg) 750 mg in 150 mls @ 150 mls/hr IV Q24H [facility] Last Infusion: 09/07/24 21:54 Dose: Infused Sodium Chloride (Sodium Chloride) 1,000 mls @ 100 mls/hr IV CONT [facility] Last Admin: 09/08/24 00:23 Dose: Not Given Cefepime HCl 1 gm/ Sodium (Chloride) 50 mls @ 50 mls/hr IV Q8H [facility] Last Infusion: 09/08/24 06:15 Dose: Infused Ibuprofen (Ibuprofen 400 Mg Tablet) 600 mg PO Q6H PRN PRN Reason: Pain Mupirocin (Mupirocin 22 Gm Oint...G.) 5 gm TOPICAL Q12H [facility] Last Admin: 09/07/24 21:53 Dose: 5 gm Ondansetron HCl (Ondansetron Hcl/Pf 4 Mg/2 Ml Vial) 4 mg INJ Q4H PRN PRN Reason: Nausea vomiting Time Spent With Patient Time: Total time spent is greater than 50% in coordination of care (as documented) at patient's floor/unit and/or counseling patient: Time with patient: 25 - 35 minutes Internal Medicine - PN: Subj Subjective Interval history: Patient is a 59 year old male admitted to med/surg as inpatient for pneumonia. Patient has spouse at bedside this AM. Patient is not ambulating to go to the restroom, he is wearing a brief, patient also has 3 urinals around his bed. Spouse voiced a concern about "jared" on patient's penis and wanted to know why it was like that. Provider and nurse evaluated area of concern and deduced it was a cut of some kind prior to admission to the hospital. Area of concern will be cleaned, dried, and medicated. Feels about the same today. Productive, deep cough. Mild dyspnea. WBCs and HR still up. CXR with b/l PNA. Exam Constitutional: normal general appearance, no apparent distress, average body habitus, no limitations and alert Vital Signs - 24 hr 09/07/24 12:00 09/07/24 16:00 09/07/24 20:00 Temperature 98.9 F 99.4 F 100.0 F H Pulse Rate [Brachi al] 79 91 H 90 Respiratory Rate 18 18 23 Blood Pressure [Le ft Arm] 165/92 155/81 158/70 Pulse Oximetry 96 95 90 L Oxygen Delivery Me thod Room Air Room Air Room Air 09/07/24 23:44 09/08/24 03:37 09/08/24 08:00 Temperature 99.1 F 98.4 F 98.3 F Pulse Rate [Brachi al] 100 H 79 91 H Respiratory Rate 20 19 18 Blood Pressure [Le ft Arm] 118/63 135/66 131/73 Pulse Oximetry 99 92 L Oxygen Delivery Md thod Room Air Room Air HENMT: normocephalic, head/scalp atraumatic and hearing grossly normal bilaterally Eyes: PERRL, EOMs intact bilaterally and conjunctivae normal Neck/C-Spine: visual inspection normal, trachea midline and cervical full ROM noted Chest: inspection of chest normal and palpation of chest normal Respiratory: breath sounds equal bilaterally, normal respiratory effort, wheezing noted (expiratory wheezes) and (scattered wheezes), no retractions and no use of accessory muscles Cardiovascular: normal heart rate noted, regular rhythm noted and no murmur Gastrointestinal: abdomen normal to inspection, abdomen soft to palpation, nontender to palpation and normoactive bowel sounds Extremities: normal to inspection and full ROM Neurology: no focal motor deficit noted, speech normal, no fasciculations noted and GCS normal Psychiatry: mental status grossly normal, oriented x3, thought process normal, uncooperative (withdrawn), affect abnormality noted (flat) and memory normal Internal Medicine - PN: Obj Da Labs Labs: Laboratory Results - last 24 hr 09/08/24 05:00 WBC 25.5 H* RBC 4.7 Hgb 13.5 L Hct 42.4 MCV 90.7 MCH 28.9 MCHC 31.9 L RDW 13.3 Plt Count 422 H MPV 10.8 H Gran % 77.4 H Lymph % (Auto) 4.6 L [place] % (Auto) 17.7 H Eos % (Auto) 0.1 Baso % (Auto) 0.2 Lymph # (Auto) 1.2 [place] # (Auto) 4.5 H Eos # (Auto) 0.0 Baso # (Auto) 0.1 Absolute Gran (auto) 19.8 H Review of Systems Status of ROS: 10 or more systems reviewed and unremarkable except as noted in history and below Constitutional: Reports: fever, chills, malaise and change in sleep pattern; Denies: fatigue Eyes: Denies: change in vision, blurry vision, blind spots or light sensitivity Ears, nose, mouth, and throat: Reports: dry mouth; Denies: throat pain, neck pain, throat swelling or difficulty swallowing Cardiovascular: Reports: shortness of breath with exertion; Denies: chest pain, palpitations, edema or swelling of feet/ankles Respiratory: Reports: shortness of breath, cough, wheezing and chest congestion Gastrointestinal: Reports: abdominal pain and vomiting; Denies: nausea or difficulty swallowing Genitourinary: Reports: urinary urgency Musculoskeletal: Denies: back pain, neck pain, extremity pain or extremity swelling Integumentary/Breast: Denies: rash, itching, redness or skin pain Neurological: Denies: headache, numbness in extremities or weakness in extremities Psychiatric: Denies: anxiety, mood swings, panic attacks or change in sleep pattern Endocrine: Denies: excessive urination, excessive thirst or fatigue Hematologic/Lymphatic: Denies: easy bruising, easy bleeding or enlarged lymph nodes Allergic/Immunologic: Reports: wheezing; Denies: hives, throat swelling, tongue swelling or facial swelling
[2024-09-08 11:05] LABS: Potassium 4.1 mmol/L (3.6-5.2)
[2024-09-08] MEDS ORDERED: CEFEPIME HCL 1 GM VIAL ONE ×2 (11:07→20:11)
[2024-09-08] MEDS: IPRATROPIUM/ALBUTEROL SULFATE 3 ML AMPUL.NEB INH SCH (11:23)
[2024-09-08] MEDS ORDERED: guaiFENesin 100 MG/5 ML LIQUID PO SCH (13:00)
[2024-09-08] MEDS: 0.9 % SODIUM CHLORIDE 50 ML IV ONE (14:00)
[2024-09-08] MEDS: dexAMETHasone 4 MG TABLET PO SCH (20:04)
[2024-09-08] MEDS: 0.9 % SODIUM CHLORIDE MB+ 100 ML IV ONE (21:37)
--- NOTE | 2024-09-09 08:50 | Internal Medicine Prog Note ---
Progress Note: A&P Assessment and Plan (1) Sepsis due to pneumonia: Assessment and Plan: severe sepsis with elevated lactate. Continue Vanc/cefepime add PO Doxy. Continue guaifenesin, steroids, and DuoNebs. Lungs more clear today. (2) Lactic acidosis: Assessment and Plan: fluids. abx. (3) Pleurisy: Assessment and Plan: resolved (4) Type 2 diabetes mellitus with hyperglycemia: Assessment and Plan: New DX. SSI for now. Will need meds at discharge. Qualifiers: Diabetes mellitus terminal clerk insulin use: without senior care use Qualified Code(s): E11.65 - Type 2 diabetes mellitus with hyperglycemia Fall Risk Details Bright Fall Scale Risk Level: Moderate Fall Risk Current Medications: Current Medications Acetaminophen (Acetaminophen 500 Mg Tablet) 500 mg PO Q6H PRN PRN Reason: Fever OF 100.5 OR GREATER Albuterol Sulfate (Ipratropium/Albuterol Sulfate 3 Ml Ampul.Neb) 3 ml INH RQ4 [facility] Last Admin: 09/09/24 07:41 Dose: 3 ml Dexamethasone (Dexamethasone 4 Mg Tablet) 4 mg PO BID [facility] Stop: 09/11/24 23:59 Last Admin: 09/08/24 20:04 Dose: 4 mg Enoxaparin Sodium (Enoxaparin Sodium 40 Mg/0.4 Ml Syringe) 40 mg SUBQ DAILY [facility] Last Admin: 09/08/24 08:59 Dose: 40 mg Guaifenesin (Guaifenesin 100 Mg/5 Ml Liquid) 400 mg PO Q4H PRN PRN Reason: cough Vancomycin/PEG/[place]DA/Lysine/Water (Vancomycin/Water 750 Mg) 750 mg in 150 mls @ 150 mls/hr IV Q24H [facility] Last Infusion: 09/08/24 22:20 Dose: Infused Sodium Chloride (Sodium Chloride) 1,000 mls @ 100 mls/hr IV CONT [facility] Last Infusion: 09/09/24 06:57 Dose: Infused Cefepime HCl 1 gm/ Sodium (Chloride) 50 mls @ 50 mls/hr IV Q8H [facility] Last Infusion: 09/09/24 06:57 Dose: Infused Ibuprofen (Ibuprofen 400 Mg Tablet) 600 mg PO Q6H PRN PRN Reason: Pain Mupirocin (Mupirocin 22 Gm Oint...G.) 5 gm TOPICAL Q12H [facility] Last Admin: 09/08/24 22:20 Dose: 5 gm Ondansetron HCl (Ondansetron Hcl/Pf 4 Mg/2 Ml Vial) 4 mg INJ Q4H PRN PRN Reason: Nausea vomiting Time Spent With Patient Time: Total time spent is greater than 50% in coordination of care (as documented) at patient's floor/unit and/or counseling patient: Time with patient: 25 - 35 minutes Internal Medicine - PN: Subj Subjective Interval history: Pt reports improved chest congestion, but still hurting and hard to breathe deeply. Cough is more productive but less frequent. Sugar running higher and has agreed to SSI. Tolerating Decadron PO and DuoNebs. WBCs up further with anion gap. Sodium normalized. Exam Constitutional: normal general appearance, no apparent distress, average body habitus, no limitations and alert Vital Signs - 24 hr 09/08/24 11:23 09/08/24 11:36 09/08/24 11:56 Temperature 99.5 F Pulse Rate [Brachi al] 120 H Respiratory Rate 19 Blood Pressure [Le ft Arm] 124/80 Pulse Oximetry 98 92 L 98 Oxygen Delivery Me thod Room Air Nasal Cannula Oxygen Flow Rate 2 09/08/24 15:19 09/08/24 15:56 09/08/24 19:35 Temperature 98.5 F 100.9 F H Pulse Rate [Brachi al] 100 H 90 Respiratory Rate 19 18 Blood Pressure [Le ft Arm] 153/72 155/78 Pulse Oximetry 99 93 L 91 L Oxygen Delivery Me thod Room Air Room Air Oxygen Flow Rate 09/08/24 20:49 09/08/24 20:49 09/08/24 23:28 Temperature 98.4 F Pulse Rate [Brachi al] 75 Respiratory Rate 20 Blood Pressure [Le ft Arm] 155/64 Pulse Oximetry 92 L 92 L 95 Oxygen Delivery Me thod Nasal Cannula Room Air Oxygen Flow Rate 09/09/24 03:40 09/09/24 07:41 09/09/24 07:41 Temperature 98.5 F Pulse Rate [Brachi al] 84 Respiratory Rate 17 Blood Pressure [Le ft Arm] 170/84 Pulse Oximetry 95 98 98 Oxygen Delivery Me thod Room Air Room Air Oxygen Flow Rate 2 09/09/24 08:00 Temperature 98.4 F Pulse Rate [Brachi al] 115 H Respiratory Rate 19 Blood Pressure [Le ft Arm] 150/85 Pulse Oximetry 94 L Oxygen Delivery Me thod Room Air Oxygen Flow Rate HENMT: normocephalic, head/scalp atraumatic and hearing grossly normal bilaterally Eyes: PERRL, EOMs intact bilaterally and conjunctivae normal Neck/C-Spine: visual inspection normal and trachea midline Respiratory: breath sounds equal bilaterally, normal respiratory effort and clear to auscultation bilaterally (diminished bilateral bases) Cardiovascular: normal heart rate noted, regular rhythm noted and no murmur Gastrointestinal: abdomen normal to inspection, abdomen soft to palpation, nontender to palpation, nondistended and normoactive bowel sounds Back/Pelvis: thoracic spine ROM normal and lumbar spine ROM normal Neurology: ed educational aide II-XII 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 Internal Medicine - PN: Obj Da Labs Labs: Laboratory Results - last 24 hr 09/08/24 10:25 Sodium 150 H Potassium 4.1 Chloride 114.0 H Carbon Dioxide 25 Anion Gap 11.0 BUN 15 Creatinine 1.5 H Estimated GFR 53.3 Glucose 222 H Calcium 8.7 Phosphorus 2.3 L Magnesium 1.6 L Total Bilirubin 0.66 AST 63 H ALT 44 Alkaline Phosphatase 64 Total Protein 7.8 Albumin 2.1 L Review of Systems Status of ROS: 10 or more systems reviewed and unremarkable except as noted in history and below Constitutional: Reports: fever, chills, malaise and change in sleep pattern; Denies: fatigue Eyes: Denies: change in vision, blurry vision, blind spots or light sensitivity Ears, nose, mouth, and throat: Reports: dry mouth; Denies: throat pain, neck pain, throat swelling or difficulty swallowing Cardiovascular: Reports: shortness of breath with exertion; Denies: chest pain, palpitations, edema or swelling of feet/ankles Respiratory: Reports: shortness of breath, cough, wheezing and chest congestion Gastrointestinal: Reports: abdominal pain and vomiting; Denies: nausea or difficulty swallowing Genitourinary: Reports: urinary urgency Musculoskeletal: Denies: back pain, neck pain, extremity pain or extremity swelling Integumentary/Breast: Denies: rash, itching, redness or skin pain Neurological: Denies: headache, numbness in extremities or weakness in extremities Psychiatric: Denies: anxiety, mood swings, panic attacks or change in sleep pattern Endocrine: Denies: excessive urination, excessive thirst or fatigue Hematologic/Lymphatic: Denies: easy bruising, easy bleeding or enlarged lymph nodes Allergic/Immunologic: Reports: wheezing; Denies: hives, throat swelling, tongue swelling or facial swelling
[2024-09-09 09:36] LABS: Monocytes #(Absolute)- Auto 2.6 (0.2-0.8)
[2024-09-09 09:39] LABS: Basophils #(Absolute) Auto 0.1 (0.0-0.1); Basophils%(Percent) Auto 0.2 (0.0-1.3); Granulocytes % - Auto 88.7 % (49.1-73.1); Hematocrit 39.7 % (41.3-50.1); Mean Corpuscular Volume 92.7 fl (81.9-96.5); Platelet Count 356 K/uL (142-355)
[2024-09-09 09:53] LABS: White Blood Count 29.3 K/uL (3.7-9.6)
[2024-09-09] MEDS: DOXYCYCLINE HYCLATE 100 MG TABLET PO SCH (11:16)
[2024-09-09] MEDS: PIPERACILLIN/TAZOBACTAM 3.375 3.375 GM in 0.9 % SODIUM CHLORIDE MB+ 100 ML IV SCH (15:40)
[2024-09-10 06:24] LABS: Potassium 3.1 mmol/L (3.6-5.2)
[2024-09-10 06:44] LABS: Basophils #(Absolute) Auto 0.3 (0.0-0.1); Basophils%(Percent) Auto 0.9 (0.0-1.3)
[2024-09-10 06:45] LABS: Granulocytes % - Auto 87.3 % (49.1-73.1); Hematocrit 34.3 % (41.3-50.1); Mean Corpuscular Volume 90.7 fl (81.9-96.5); Monocytes #(Absolute)- Auto 2.5 (0.2-0.8); Monocytes %(Percent)- Auto 7.4 % (4.5-10.7); Platelet Count 179 K/uL (142-355)
[2024-09-10 06:50] LABS: White Blood Count 33.2 K/uL (3.7-9.6)
[2024-09-10 08:28] LABS: Total Cells Counted 100
[2024-09-10 08:29] LABS: RBC Morphology Normal (Normal)
[2024-09-10 09:09] LABS: Base Excess ABG -3.9 mmo1/L (-2-2); PCO2 ABG 27 mmHg (35-45); PO2 ABG 55 mmHg (60-100); pH ABG 7.45 (7.35-7.45)
[2024-09-10 09:10] LABS: Oxygen Saturation ABG 90 % (92-100)
[2024-09-10] MEDS ORDERED: POTASSIUM CHLORIDE IN WATER 10 MEQ/100 ML PIGGYBACK IV SCH (10:30)
[2024-09-10] MEDS: POTASSIUM CHLORIDE IN WATER 10 MEQ/100 ML PIGGYBACK IV ONE (10:30)
[2024-09-10] MEDS: PANTOPRAZOLE SODIUM 40 MG TABLET.DR PO ONE (10:47)
[2024-09-10] MEDS: MAGNESIUM OXIDE 400 MG TABLET PO ONE (10:47)
[2024-09-10] MEDS: POTASSIUM CHLORIDE 20 MEQ TAB.ER.PRT PO ONE (10:48)
[2024-09-10] MEDS: POTASSIUM CHLORIDE IN WATER 10 MEQ/100 ML PIGGYBACK IV SCH (11:05)
[2024-09-10] MEDS: MAGNESIUM SULFATE/D5W 2 GM/200 ML PIGGYBACK IV ONE (11:05)
[2024-09-10] MEDS: ALBUMIN HUMAN 25% 100 ML IV SCH (11:06)
--- NOTE | 2024-09-10 11:22 | Progress Note ---
Progress Note: Subjective Subjective Interval history: Patient is alert and oriented, he states he is feeling better. Chief complaint today is loose stools and eating Epson salt with melatonin and other products in it. Heart burn is now being treated with Pantoprazole Sodium 40 mg PO BID. Continue to talk to [facility] and they are still reaching out to infectious disease for ideas of antibiotic and other testing needed. CTA not completed yesterday secondary to approval issues then technique issues and then IV size and finally patient refused to have a further search for the IV. Exam Exam: Patient in low byrne's position upon entering room for exam. Awake and oriented to place and time. Patient in positive disposition. Constitutional: abnormal general appearance (disheveled), (chronically ill) and (appears older than stated age), no apparent distress, abnormal body habitus (cachectic), no limitations and alert Vital Signs - 24 hr 09/09/24 11:30 09/09/24 11:43 09/09/24 15:01 Temperature 98.5 F Pulse Rate [Brachi al] 100 H Respiratory Rate 19 Blood Pressure [Le ft Arm] 144/77 Pulse Oximetry 97 95 95 Oxygen Delivery Me thod Room Air Oxygen Flow Rate Fraction of Inspir ed Oxygen 09/09/24 15:43 09/09/24 19:49 09/09/24 20:29 Temperature 98.2 F 98.7 F Pulse Rate [Brachi al] 112 H 93 H Respiratory Rate 19 18 Blood Pressure [Le ft Arm] 154/84 158/84 Pulse Oximetry 93 L 91 L 96 Oxygen Delivery Me thod Nasal Cannula Room Air Oxygen Flow Rate 1 Fraction of Inspir ed Oxygen 09/09/24 23:24 09/09/24 23:49 09/10/24 00:01 Temperature 98.5 F Pulse Rate [Brachi al] 97 H Respiratory Rate 19 Blood Pressure [Le ft Arm] 129/73 Pulse Oximetry 91 L 96 94 L Oxygen Delivery Me thod Room Air Nasal Cannula Oxygen Flow Rate 2 Fraction of Inspir ed Oxygen 28 09/10/24 03:28 09/10/24 04:09 09/10/24 07:42 Temperature 97.8 F 98.1 F Pulse Rate [Brachi al] 83 91 H Respiratory Rate 18 20 Blood Pressure [Le ft Arm] 149/78 174/93 Pulse Oximetry 92 L 93 L 91 L Oxygen Delivery Me thod Room Air Room Air Oxygen Flow Rate Fraction of Inspir ed Oxygen HENMT: normocephalic, head/scalp atraumatic, hearing grossly normal bilaterally and external ears normal Eyes: PERRL, EOMs intact bilaterally, scleral icterus noted and papilledema noted Neck/C-Spine: visual inspection normal, trachea midline, cervical spine nontender, abnormal cervical ROM noted, supple, no meningeal signs, thyroid normal and no carotid bruits Lymph: no lymphadenopathy noted and no lymphedema noted Chest: inspection of chest normal and palpation of chest normal Respiratory: breath sounds equal bilaterally, abnormal respiratory effort (deminished in the bases) (labored), clear to auscultation bilaterally (diminished bilateral bases), wheezing noted (expiratory wheezes) and (scattered wheezes), no retractions and no use of accessory muscles Cardiovascular: normal heart rate noted, regular rhythm noted, no gallop, no rub and no murmur Gastrointestinal: abdomen normal to inspection, abdomen soft to palpation, nontender to palpation, nondistended and normoactive bowel sounds Genitourinary: no CVA tenderness, bladder normal to palpation and external appearance abnormal (possible "cut" on penile area) Back/Pelvis: spine normal to inspection, no thoracic spine tenderness, thoracic spine ROM normal and lumbar spine ROM normal Extremities: normal to inspection, normal to palpation, no tenderness and full ROM Neurology: 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 Feel stressed/tense/nervous/anxious/difficulty sleeping: decline to answer Skin: skin color normal, no rash, no lesions, no ecchymosis noted, no wounds, no lacerations and skin turgor abnormal (ashy) Reports (tenting) Progress Note: Objective Labs Labs: CBC WBC 33.2 K/uL (3.7-9.6) H* 09/10/24 05:10 RBC 3.8 M/uL (4.40-5.80) L 09/10/24 05:10 Hgb 11.2 gm/dL (14.0-17.4) L 09/10/24 05:10 Hct 34.3 % (41.3-50.1) L 09/10/24 05:10 MCV 90.7 fl (81.9-96.5) 09/10/24 05:10 MCH 29.5 pg (27.6-33.7) 09/10/24 05:10 MCHC 32.6 g/dl (33.0-35.7) L 09/10/24 05:10 RDW 12.8 % (11.0-14.8) 09/10/24 05:10 Plt Count 179 K/uL (142-355) 09/10/24 05:10 MPV 10.8 fl (6.0-10.4) H 09/10/24 05:10 Gran % 87.3 % (49.1-73.1) H 09/10/24 05:10 Lymph % (Auto) 4.4 % (17.6-39.05) L 09/10/24 05:10 [place] % (Auto) 7.4 % (4.5-10.7) 09/10/24 05:10 Eos % (Auto) 0.0 % (0.0-4.0) 09/10/24 05:10 Baso % (Auto) 0.9 (0.0-1.3) 09/10/24 05:10 Lymph # (Auto) 1.5 (0.8-2.9) 09/10/24 05:10 [place] # (Auto) 2.5 (0.2-0.8) H 09/10/24 05:10 Eos # (Auto) 0.0 (0.0-0.3) 09/10/24 05:10 Baso # (Auto) 0.3 (0.0-0.1) H 09/10/24 05:10 Absolute Gran (auto) 29.0 (2.0-6.2) H 09/10/24 05:10 BMP Sodium 141 mmol/L (136-145) 09/10/24 05:10 Potassium 3.1 mmol/L (3.6-5.2) L 09/10/24 05:10 Chloride 108.0 mmol/L (98-107) H 09/10/24 05:10 Carbon Dioxide 21 mmol/L (21-32) 09/10/24 05:10 Anion Gap 12.0 mEq/L (4-14) 09/10/24 05:10 BUN 19 mg/dL (7-18) H 09/10/24 05:10 Creatinine 1.2 mg/dL (0.6-1.3) 09/10/24 05:10 Estimated GFR 69.7 (>59.9) 09/10/24 05:10 Glucose 262 mg/dL (70-110) H 09/10/24 05:10 Hemoglobin A1c 8.0 % (4.8-6.0) H 09/05/24 18:50 Calcium 7.8 mg/dL (8.5-10.1) L 09/10/24 05:10 Phosphorus 2.8 mg/dL (2.5-4.9) 09/10/24 05:10 Magnesium 1.5 mg/dL (1.8-2.4) L 09/10/24 05:10 Total Bilirubin 0.47 mg/dL (0.0-1.0) 09/10/24 05:10 AST 48 U/L (15-37) H 09/10/24 05:10 ALT 43 U/L (30-65) 09/10/24 05:10 Alkaline Phosphatase 50 U/L (50-136) 09/10/24 05:10 Total Protein 6.3 g/dL (6.4-8.2) L 09/10/24 05:10 Albumin 1.7 g/dL (3.4-5.0) L 09/10/24 05:10 Liver Function Total Bilirubin 0.47 mg/dL (0.0-1.0) 09/10/24 05:10 AST 48 U/L (15-37) H 09/10/24 05:10 ALT 43 U/L (30-65) 09/10/24 05:10 Alkaline Phosphatase 50 U/L (50-136) 09/10/24 05:10 Total Protein 6.3 g/dL (6.4-8.2) L 09/10/24 05:10 Albumin 1.7 g/dL (3.4-5.0) L 09/10/24 05:10 Urine Urine Color Yellow (STRAW/YELL.) 09/05/24 20:35 Urine Appearance Clear (CLEAR) 09/05/24 20:35 Ur Specific [place] 1.010 (1.001-1.035) 09/05/24 20:35 Urine Protein 4+ (NEGATIVE) 09/05/24 20:35 Urine Glucose (UA) 4+ (NORMAL) 09/05/24 20:35 Urine Ketones Moderate (NEGATIVE) 09/05/24 20:35 Urine Occult Blood 4+ (NEG - TRACE) 09/05/24 20:35 Urine Nitrite Negative (NEGATIVE) 09/05/24 20:35 Urine Bilirubin Negative (NEGATIVE) 09/05/24 20:35 Urine Urobilinogen Normal (NORMAL) 09/05/24 20:35 Ur Leukocyte Esterase Negative (NEGATIVE) 09/05/24 20:35 chest xray 2 view 09/11/2024 ABG Attestation: I have reviewed the pertinent ABG results. Pulse Oximetry Attestation: I personally reviewed and interpreted this pulse oximetry as follows: ECG Attestation: I have reviewed the pertinent ECG results. Progress Note: A&P Assessment and Plan (1) Sepsis due to pneumonia: Assessment and Plan: severe sepsis with elevated lactate. Continue Vanc/cefepime add PO Doxy. Continue guaifenesin, steroids, and DuoNebs. Lungs more clear today. (2) Lactic acidosis: Assessment and Plan: fluids. abx. (3) Pleurisy: Assessment and Plan: resolved (4) Type 2 diabetes mellitus with hyperglycemia: Assessment and Plan: New DX. SSI for now. Will need meds at discharge. 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 Gallbladder Ultrasound Repeat Chest X-Ray Fall Risk Details Bright Fall Scale Risk Level: Moderate Fall Risk Current Medications: Current Medications Acetaminophen (Acetaminophen 500 Mg Tablet) 500 mg PO Q6H PRN PRN Reason: Fever OF 100.5 OR GREATER Albuterol Sulfate (Ipratropium/Albuterol Sulfate 3 Ml Ampul.Neb) 3 ml INH RQ4 [facility] Last Admin: 09/10/24 08:00 Dose: Not Given Dexamethasone (Dexamethasone 4 Mg Tablet) 4 mg PO BID [facility] Stop: 09/11/24 23:59 Last Admin: 09/10/24 09:40 Dose: 4 mg Doxycycline Hyclate (Doxycycline Hyclate 100 Mg Tablet) 100 mg PO BID [facility] Last Admin: 09/10/24 09:40 Dose: 100 mg Enoxaparin Sodium (Enoxaparin Sodium 40 Mg/0.4 Ml Syringe) 40 mg SUBQ DAILY [facility] Last Admin: 09/10/24 09:40 Dose: 40 mg Guaifenesin (Guaifenesin 100 Mg/5 Ml Liquid) 400 mg PO Q4H PRN PRN Reason: cough Vancomycin/PEG/[place]/Lysine/Water (Vancomycin/Water 750 Mg) 750 mg in 150 mls @ 150 mls/hr IV Q24H [facility] Last Infusion: 09/09/24 21:39 Dose: Infused Sodium Chloride (Sodium Chloride) 1,000 mls @ 150 mls/hr IV CONT [facility] Last Admin: 09/10/24 00:38 Dose: Not Given Piperacillin Sod/Tazobactam (Sod 3.375 gm/ Sodium Chloride) 100 mls @ 200 mls/hr IV Q6H [facility] Last Infusion: 09/10/24 06:02 Dose: Infused Albumin Human (Albumin Human 25%) 100 mls @ 60 mls/hr IV Q2H [facility] Stop: 09/10/24 14:09 Magnesium Sulfate/Dextrose (Magnesium Sulf 1 G/100 Ml-D5w) 2 gm in 200 mls @ 100 mls/hr IV ONCE ONE Stop: 09/10/24 12:29 Potassium Chloride (Potassium Cl 10 Meq/100 Ml [place]) 10 meq in 100 mls @ 100 mls/hr IV ONCE [facility] Potassium Chloride (Potassium Cl 10 Meq/100 Ml [place]) 10 meq in 100 mls @ 100 mls/hr IV ONCE [facility] Potassium Chloride (Potassium Cl 10 Meq/100 Ml [place]) 10 meq in 100 mls @ 100 mls/hr IV ONCE ONE Stop: 09/10/24 11:29 Ibuprofen (Ibuprofen 400 Mg Tablet) 600 mg PO Q6H PRN PRN Reason: Pain Insulin Human Regular (Insulin Regular, Human 100 Unit/Ml) 0 unit SUBQ ACHS PRN; Protocol PRN Reason: HYPERGLYCEMIA Last Admin: 09/09/24 20:36 Dose: 12 unit Magnesium (Magnesium Oxide 400 Mg Tablet) 400 mg PO ONCE ONE Stop: 09/10/24 10:31 Mupirocin (Mupirocin 22 Gm Oint...G.) 5 gm TOPICAL Q12H [facility] Last Admin: 09/09/24 22:45 Dose: 5 gm Ondansetron HCl (Ondansetron Hcl/Pf 4 Mg/2 Ml Vial) 4 mg INJ Q4H PRN PRN Reason: Nausea vomiting Pantoprazole Sodium (Pantoprazole Sodium 40 Mg Tablet.Dr) 40 mg PO BID [facility] Pantoprazole Sodium (Pantoprazole Sodium 40 Mg Tablet.Dr) 40 mg PO ONCE ONE Stop: 09/10/24 10:31 Potassium Chloride (Potassium Chloride 20 Meq Tab.Er.Prt) 20 meq PO ONCE ONE Stop: 09/10/24 10:31 Time Spent With Patient Time: Total time spent is greater than 50% in coordination of care (as documented) at patient's floor/unit and/or counseling patient: Time with patient: greater than 35 minutes
[2024-09-10] MEDS: SUCRALFATE 1 GM/10 ML ORAL.SUSP PO SCH (12:15)
[2024-09-10] MEDS: PANTOPRAZOLE SODIUM 40 MG TABLET.DR PO SCH (20:51)
[2024-09-11 06:11] LABS: Basophils #(Absolute) Auto 0.1 (0.0-0.1); Basophils%(Percent) Auto 0.2 (0.0-1.3)
[2024-09-11 06:13] LABS: Granulocytes % - Auto 84.8 % (49.1-73.1); Granulocytes#(Absolute)- Auto 26.6 (2.0-6.2); Hematocrit 36.6 % (41.3-50.1); Mean Corpuscular Volume 91.2 fl (81.9-96.5); Monocytes #(Absolute)- Auto 3.5 (0.2-0.8); Monocytes %(Percent)- Auto 11.1 % (4.5-10.7); Platelet Count 238 K/uL (142-355)
[2024-09-11 06:27] LABS: Potassium 4.1 mmol/L (3.6-5.2)
[2024-09-11 06:42] LABS: White Blood Count 31.3 K/uL (3.7-9.6)
[2024-09-11 06:43] LABS: Total Cells Counted 100
[2024-09-11 06:45] LABS: RBC Morphology Normal (Normal)
--- NOTE | 2024-09-11 11:27 | Progress Note ---
Progress Note: Subjective Subjective Interval history: Patient is alert and oriented, he states he is feeling better. Chief complaint today is loose stools and eating Epson salt with melatonin and other products in it. Heart burn is now being treated with Pantoprazole Sodium 40 mg PO BID. Continue to talk to [facility] and they are still reaching out to infectious disease for ideas of antibiotic and other testing needed. CTA not completed yesterday secondary to approval issues then technique issues and then IV size and finally patient refused to have a further search for the IV. Exam Constitutional: Vital Signs - 24 hr 09/10/24 12:00 09/10/24 16:00 09/10/24 20:00 Temperature 98.4 F 98.3 F 98.3 F Pulse Rate [Brachi al] 67 74 88 Respiratory Rate 20 20 19 Blood Pressure [Le ft Arm] 154/84 135/77 131/75 Pulse Oximetry 95 95 93 L Oxygen Delivery Me thod Room Air Room Air Room Air Fraction of Inspir ed Oxygen 09/11/24 00:00 09/11/24 04:00 09/11/24 08:00 Temperature 98.0 F 97.9 F 98.4 F Pulse Rate [Brachi al] 81 81 63 Respiratory Rate 18 18 19 Blood Pressure [Le ft Arm] 126/68 122/72 157/75 Pulse Oximetry 94 L 94 L 96 Oxygen Delivery Me thod Room Air Room Air Room Air Fraction of Inspir ed Oxygen 09/11/24 08:25 Temperature Pulse Rate [Brachi al] Respiratory Rate Blood Pressure [Le ft Arm] Pulse Oximetry 94 L Oxygen Delivery Me thod Fraction of Inspir ed Oxygen 21 Progress Note: Objective Labs Labs: CBC WBC 31.3 K/uL (3.7-9.6) H* 09/11/24 06:00 RBC 4.0 M/uL (4.40-5.80) L 09/11/24 06:00 Hgb 11.9 gm/dL (14.0-17.4) L 09/11/24 06:00 Hct 36.6 % (41.3-50.1) L 09/11/24 06:00 MCV 91.2 fl (81.9-96.5) 09/11/24 06:00 MCH 29.7 pg (27.6-33.7) 09/11/24 06:00 MCHC 32.6 g/dl (33.0-35.7) L 09/11/24 06:00 RDW 13.5 % (11.0-14.8) 09/11/24 06:00 Plt Count 238 K/uL (142-355) 09/11/24 06:00 MPV 10.7 fl (6.0-10.4) H 09/11/24 06:00 Gran % 84.8 % (49.1-73.1) H 09/11/24 06:00 Lymph % (Auto) 3.9 % (17.6-39.05) L 09/11/24 06:00 [place] % (Auto) 11.1 % (4.5-10.7) H 09/11/24 06:00 Eos % (Auto) 0.0 % (0.0-4.0) 09/11/24 06:00 Baso % (Auto) 0.2 (0.0-1.3) 09/11/24 06:00 Lymph # (Auto) 1.2 (0.8-2.9) 09/11/24 06:00 [place] # (Auto) 3.5 (0.2-0.8) H 09/11/24 06:00 Eos # (Auto) 0.0 (0.0-0.3) 09/11/24 06:00 Baso # (Auto) 0.1 (0.0-0.1) 09/11/24 06:00 Absolute Gran (auto) 26.6 (2.0-6.2) H 09/11/24 06:00 BMP Sodium 140 mmol/L (136-145) 09/11/24 06:00 Potassium 4.1 mmol/L (3.6-5.2) 09/11/24 06:00 Chloride 110.0 mmol/L (98-107) H 09/11/24 06:00 Carbon Dioxide 20 mmol/L (21-32) L 09/11/24 06:00 Anion Gap 10.0 mEq/L (4-14) 09/11/24 06:00 BUN 20 mg/dL (7-18) H 09/11/24 06:00 Creatinine 1.4 mg/dL (0.6-1.3) H 09/11/24 06:00 Estimated GFR 57.9 (>59.9) 09/11/24 06:00 Glucose 129 mg/dL (70-110) H 09/11/24 06:00 Hemoglobin A1c 8.0 % (4.8-6.0) H 09/05/24 18:50 Calcium 7.9 mg/dL (8.5-10.1) L 09/11/24 06:00 Phosphorus 1.6 mg/dL (2.5-4.9) L 09/11/24 06:00 Magnesium 1.9 mg/dL (1.8-2.4) 09/11/24 06:00 Total Bilirubin 0.76 mg/dL (0.0-1.0) 09/11/24 06:00 AST 69 U/L (15-37) H 09/11/24 06:00 ALT 56 U/L (30-65) 09/11/24 06:00 Alkaline Phosphatase 45 U/L (50-136) L 09/11/24 06:00 Total Protein 6.6 g/dL (6.4-8.2) 09/11/24 06:00 Albumin 2.4 g/dL (3.4-5.0) L 09/11/24 06:00 Liver Function Total Bilirubin 0.76 mg/dL (0.0-1.0) 09/11/24 06:00 AST 69 U/L (15-37) H 09/11/24 06:00 ALT 56 U/L (30-65) 09/11/24 06:00 Alkaline Phosphatase 45 U/L (50-136) L 09/11/24 06:00 Total Protein 6.6 g/dL (6.4-8.2) 09/11/24 06:00 Albumin 2.4 g/dL (3.4-5.0) L 09/11/24 06:00 Urine Urine Color Yellow (STRAW/YELL.) 09/05/24 20:35 Urine Appearance Clear (CLEAR) 09/05/24: Ur Specific [place] 1.010 (1.001-1.035) 09/05/24 20:35 Urine Protein 4+ (NEGATIVE) 09/05/24 20:35 Urine Glucose (UA) 4+ (NORMAL) 09/05/24 20: Urine Ketones Moderate (NEGATIVE) 09/05/24 20:35 Urine Occult Blood 4+ (NEG - TRACE) 09/05/24 20:35 Urine Nitrite Negative (NEGATIVE) 09/05/24 20:35 Urine Bilirubin Negative (NEGATIVE) 09/05/24 20:35 Urine Urobilinogen Normal (NORMAL) 09/05/24 20:35 Ur Leukocyte Esterase Negative (NEGATIVE) 09/05/24 20:35 XR CHEST 2V HISTORY: pneumonia; . COMPARISON STUDY: 09/07/2024 TECHNIQUE: Two views FINDINGS: Heart size is normal. New infiltrate in the right upper lobe. Bibasilar infiltrates unchanged. No pneumothorax or other change noted. Technical artifacts overlie the chest. IMPRESSION: No change in bibasilar infiltrates. Follow-up recommended. New infiltrate in the right upper lobe. THIS IS AN ELECTRONICALLY VERIFIED FINAL REPORT 09/11/2024 9:11 AM - Electronically signed by David Alfaro MD Imaging Chest x-ray: Attestation: I have reviewed the pertinent imaging results. Radiologist's impression: XR CHEST 2V HISTORY: pneumonia; . COMPARISON STUDY: 09/07/2024 TECHNIQUE: Two views FINDINGS: Heart size is normal. New infiltrate in the right upper lobe. Bibasilar infiltrates unchanged. No pneumothorax or other change noted. Technical artifacts overlie the chest. IMPRESSION: No change in bibasilar infiltrates. Follow-up recommended. New infiltrate in the right upper lobe. THIS IS AN ELECTRONICALLY VERIFIED FINAL REPORT 09/11/2024 9:11 AM - Electronically signed by David Alfaro MD echo: Attestation: I have reviewed the pertinent imaging results. Progress Note: A&P Assessment and Plan (1) Sepsis due to pneumonia: Assessment and Plan: severe sepsis with elevated lactate. Continue Vanc/cefepime add PO Doxy. Continue guaifenesin, steroids, and DuoNebs. Lungs more clear today. recheck covid continue doxycycline and zosyn and vancomycin and await [facility] (2) Lactic acidosis: Assessment and Plan: fluids. abx. (3) Pleurisy: Assessment and Plan: resolved (4) Type 2 diabetes mellitus with hyperglycemia: Assessment and Plan: New DX. SSI for now. Will need meds at discharge. Qualifiers: Diabetes mellitus longterm insulin use: without continuous churn buttermaker use Qualified Code(s): E11.65 - Type 2 diabetes mellitus with hyperglycemia (5) Hypoalbuminemia: Assessment and Plan: Albumin Human 25% 100 mls @ 60 mls/hr IV Q2H (6) Constipation: Assessment and Plan: Magnesium Sulfate/Dextrose 2 gm in 200 mls @ 100 mls/hr IV ONCE ONE Qualifiers: Constipation type: unspecified constipation type Qualified Code(s): K59.00 - Constipation, unspecified (7) Cocaine abuse: Assessment and Plan: discussed treatement options and patient states he will never use again and admits to using for years and multiple times per day and last use morning of adm it to the hospital (8) Hypertension: Assessment and Plan: add losartan 100 mg po daily Qualifiers: Hypertension type: primary hypertension Qualified Code(s): I10 - Essential (primary) hypertension (9) Cough: Assessment and Plan: add tussionex bid prn Qualifiers: Cough type: acute Qualified Code(s): R05.1 - Acute cough (10) GERD with esophagitis: Assessment and Plan: added protonix bid and GI cocktail prn Qualifiers: Esophagitis bleeding: with hemorrhage Qualified Code(s): K21.01 - Gastro-esophageal reflux disease with esophagitis, with bleeding (11) Accidental ingestion of toxic substance: Assessment and Plan: poison control suggested rpeat CMP at 12 and monitor mag at 12 pm and INR to ensure patient safe with the ingestion of epson salt with the melatonin Qualifiers: Encounter type: initial encounter Qualified Code(s): T65.91XA - Toxic effect of unspecified substance, accidental (unintentional), initial encounter (12) Diarrhea: Qualifiers: Diarrhea type: functional diarrhea Qualified Code(s): K59.1 - Functional diarrhea Plan Electrolyte replacement with Albumin and Potassium. Gallbladder Ultrasound Repeat Chest X-Ray Fall Risk Details Bright Fall Scale Risk Level: Low Fall Risk Current Medications: Current Medications Acetaminophen (Acetaminophen 500 Mg Tablet) 500 mg PO Q6H PRN PRN Reason: Fever OF 100.5 OR GREATER Albuterol Sulfate (Ipratropium/Albuterol Sulfate 3 Ml Ampul.Neb) 3 ml INH RQ4 AFIA Last Admin: 09/11/24 08:26 Dose: Not Given Doxycycline Hyclate (Doxycycline Hyclate 100 Mg Tablet) 100 mg PO BID [facility] Last Admin: 09/11/24 08:32 Dose: 100 mg Enoxaparin Sodium (Enoxaparin Sodium 40 Mg/0.4 Ml Syringe) 40 mg SUBQ DAILY [facility] Last Admin: 09/11/24 08:33 Dose: 40 mg Guaifenesin (Guaifenesin 100 Mg/5 Ml Liquid) 400 mg PO Q4H PRN PRN Reason: cough Vancomycin/PEG/NADA/Lysine/Water (Vancomycin/Water 750 Mg) 750 mg in 150 mls @ 150 mls/hr IV Q24H [facility] Last Infusion: 09/10/24 21:51 Dose: Infused Sodium Chloride (Sodium Chloride) 1,000 mls @ 150 mls/hr IV CONT [facility], [facility] Last Admin: 09/11/24 00:19 Dose: 100 mls/hr Piperacillin Sod/Tazobactam (Sod 3.375 gm/ Sodium Chloride) 100 mls @ 200 mls/hr IV Q6H [facility] Last Admin: 09/11/24 10:50 Dose: 200 mls/hr Potassium Chloride (Potassium Cl 10 Meq/100 Ml [place]) 10 meq in 100 mls @ 100 mls/hr IV ONCE [facility] Last Infusion: 09/10/24 13:15 Dose: Infused Potassium Chloride (Potassium Cl 10 Meq/100 Ml [place]) 10 meq in 100 mls @ 100 mls/hr IV ONCE [facility] Ibuprofen (Ibuprofen 400 Mg Tablet) 600 mg PO Q6H PRN PRN Reason: Pain Insulin Human Regular (Insulin Regular, Human 100 Unit/Ml) 0 unit SUBQ ACHS PRN; Protocol PRN Reason: HYPERGLYCEMIA Last Admin: 09/10/24 16:00 Dose: 12 unit Mupirocin (Mupirocin 22 Gm Oint...G.) 5 gm TOPICAL Q12H [facility] Last Admin: 09/10/24 22:11 Dose: 5 gm Ondansetron HCl (Ondansetron Hcl/Pf 4 Mg/2 Ml Vial) 4 mg INJ Q4H PRN PRN Reason: Nausea vomiting Pantoprazole Sodium (Pantoprazole Sodium 40 Mg Tablet.Dr) 40 mg PO BID [facility] Last Admin: 09/11/24 08:33 Dose: 40 mg Sucralfate (Sucralfate 1 Gm/10 Ml Oral.Susp) 1 gm PO Q8H [facility] Last Admin: 09/11/24 03:31 Dose: 1 gm Time Spent With Patient Time: Total time spent is greater than 50% in coordination of care (as documented) at patient's floor/unit and/or counseling patient:
[2024-09-11 12:33] LABS: Potassium 3.7 mmol/L (3.6-5.2)
[2024-09-11 12:35] LABS: INR 1.2
[2024-09-11] MEDS: guaiFENesin 100 MG/5 ML LIQUID PO PRN (16:36)
[2024-09-11] MEDS: GUAIFENESIN/DEXTROMETHORPHAN 20/200MG/10 ML SOLUTION PO PRN (19:27)
[2024-09-12] MEDS: IBUPROFEN 400 MG TABLET PO PRN (02:25)
[2024-09-12 05:02] LABS: Eosinophils%(Percent) Auto 0.1 % (0.0-4.0)
[2024-09-12 05:03] LABS: Basophils%(Percent) Auto 0.1 (0.0-1.3); Granulocytes % - Auto 80.1 % (49.1-73.1); Granulocytes#(Absolute)- Auto 20.1 (2.0-6.2); Hematocrit 34.7 % (41.3-50.1); Mean Corpuscular Volume 88.1 fl (81.9-96.5); Monocytes #(Absolute)- Auto 3.6 (0.2-0.8); Monocytes %(Percent)- Auto 14.2 % (4.5-10.7); Platelet Count 185 K/uL (142-355)
[2024-09-12 05:07] LABS: White Blood Count 25.1 K/uL (3.7-9.6)
[2024-09-12 05:13] LABS: Potassium 3.3 mmol/L (3.6-5.2)
[2024-09-12] MEDS: CEFTRIAXONE SODIUM 2 GM in 0.9 % SODIUM CHLORIDE 100ML 100 ML IV SCH (09:18)
[2024-09-12] MEDS: AZITHROMYCIN 500 MG 500 MG in 0.9 % SODIUM CHLORIDE 250 ML IV SCH (09:18)
--- NOTE | 2024-09-12 09:27 | Progress Note ---
Progress Note: Subjective Subjective Interval history: Patient is alert and oriented, he states he is feeling better. Ambulatory in hallway with staff. Does report dyspnea on exertion and "soreness in chest, shoulders and upper back from coughing". AU consult with infectious disease was performed on yesterday. Exam Exam: Patient in low byrne's position upon entering room for exam. Awake and oriented to place and time. Patient in positive disposition. Constitutional: abnormal general appearance (disheveled), (chronically ill) and (appears older than stated age), no apparent distress, abnormal body habitus (cachectic), no limitations and alert Vital Signs - 24 hr 09/11/24 12:00 09/11/24 15:51 09/11/24 18:57 Temperature 98.6 F 98.9 F 98.8 F Pulse Rate [Brachi al] 85 83 74 Respiratory Rate 19 17 25 H Blood Pressure [Le ft Arm] 126/75 140/77 151/74 Pulse Oximetry 94 L 93 L 94 L Oxygen Delivery Me thod Room Air Room Air Room Air 09/11/24 19:32 09/11/24 22:00 09/12/24 02:00 Temperature 98.6 F 98.4 F Pulse Rate [Brachi al] 74 71 Respiratory Rate 25 H 19 19 Blood Pressure [Le ft Arm] 139/68 136/65 Pulse Oximetry 96 96 Oxygen Delivery Me thod Room Air Room Air 09/12/24 08:21 Temperature 97.8 F Pulse Rate [Brachi al] 77 Respiratory Rate 18 Blood Pressure [Le ft Arm] 143/77 Pulse Oximetry 93 L [facility] HENMT: normocephalic, head/scalp atraumatic, hearing grossly normal raheem aterally and external ears normal Eyes: PERRL, EOMs intact bilaterally, conjunctivae normal, scleral icterus noted and papilledema noted Neck/C-Spine: visual inspection normal, trachea midline, cervical spine nontender, abnormal cervical ROM noted, supple, no meningeal signs, thyroid normal and no carotid bruits Lymph: no lymphadenopathy noted and no lymphedema noted Chest: inspection of chest normal and palpation of chest normal Respiratory: breath sounds equal bilaterally, abnormal respiratory effort (diminished in the bases) (labored), clear to auscultation bilaterally (diminished bilateral bases), wheezing noted (expiratory wheezes) and (scattered wheezes), no retractions and no use of accessory muscles Cardiovascular: normal heart rate noted, regular rhythm noted, no gallop, no rub and no murmur Gastrointestinal: abdomen normal to inspection, abdomen soft to palpation, nontender to palpation, nondistended and normoactive bowel sounds Genitourinary: no CVA tenderness, bladder normal to palpation and external appearance abnormal (possible "cut" on penile area) Back/Pelvis: spine normal to inspection, no thoracic spine tenderness, thoracic spine ROM normal and lumbar spine ROM normal Extremities: normal to inspection, normal to palpation, no tenderness and full ROM Neurology: senior bioinformatics specialist II-XII 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 Skin: skin color normal, no rash, no ecchymosis noted, wound(s) noted (penile abrasion) and skin turgor abnormal (ashy) Reports (tenting) Progress Note: Objective Labs Labs: CBC WBC 25.1 K/uL (3.7-9.6) H* 09/12/24 04:54 RBC 3.9 M/uL (4.40-5.80) L 09/12/24 04:54 Hgb 11.5 gm/dL (14.0-17.4) L 09/12/24 04:54 Hct 34.7 % (41.3-50.1) L 09/12/24 04:54 MCV 88.1 fl (81.9-96.5) 09/12/24 04:54 MCH 29.2 pg (27.6-33.7) 09/12/24 04:54 MCHC 33.1 g/dl (33.0-35.7) 09/12/24 04:54 RDW 13.0 % (11.0-14.8) 09/12/24 04:54 Plt Count 185 K/uL (142-355) 09/12/24 04:54 MPV 10.9 fl (6.0-10.4) H 09/12/24 04:54 Gran % 80.1 % (49.1-73.1) H 09/12/24 04:54 Lymph % (Auto) 5.5 % (17.6-39.05) L 09/12/24 04:54 [place] % (Auto) 14.2 % (4.5-10.7) H 09/12/24 04:54 Eos % (Auto) 0.1 % (0.0-4.0) 09/12/24 04:54 Baso % (Auto) 0.1 (0.0-1.3) 09/12/24 04:54 Lymph # (Auto) 1.4 (0.8-2.9) 09/12/24 04:54 [place] # (Auto) 3.6 (0.2-0.8) H 09/12/24 04:54 Eos # (Auto) 0.0 (0.0-0.3) 09/12/24 04:54 Baso # (Auto) 0.0 (0.0-0.1) 09/12/24 04:54 Absolute Gran (auto) 20.1 (2.0-6.2) H 09/12/24 04:54 BMP Sodium 142 mmol/L (136-145) 09/12/24 04:54 Potassium 3.3 mmol/L (3.6-5.2) L 09/12/24 04:54 Chloride 110.0 mmol/L (98-107) H 09/12/24 04:54 Carbon Dioxide 20 mmol/L (21-32) L 09/12/24 04:54 Anion Gap 12.0 mEq/L (4-14) 09/12/24 04:54 BUN 18 mg/dL (7-18) 09/12/24 04:54 Creatinine 1.3 mg/dL (0.6-1.3) 09/12/24 04:54 Estimated GFR 63.3 (>59.9) 09/12/24 04:54 Glucose 105 mg/dL (70-110) 09/12/24 04:54 Hemoglobin A1c 8.0 % (4.8-6.0) H 09/05/24 18:50 Calcium 7.9 mg/dL (8.5-10.1) L 09/12/24 04:54 Phosphorus 2.5 mg/dL (2.5-4.9) 09/12/24 04:54 Magnesium 1.4 mg/dL (1.8-2.4) L 09/12/24 04:54 Total Bilirubin 0.72 mg/dL (0.0-1.0) 09/12/24 04:54 AST 48 U/L (15-37) H 09/12/24 04:54 ALT 50 U/L (30-65) 09/12/24 04:54 Alkaline Phosphatase 45 U/L (50-136) L 09/12/24 04:54 Total Protein 6.1 g/dL (6.4-8.2) L 09/12/24 04:54 Albumin 2.1 g/dL (3.4-5.0) L 09/12/24 04:54 Liver Function Total Bilirubin 0.72 mg/dL (0.0-1.0) 09/12/24 04:54 AST 48 U/L (15-37) H 09/12/24 04:54 ALT 50 U/L (30-65) 09/12/24 04:54 Alkaline Phosphatase 45 U/L (50-136) L 09/12/24 04:54 Total Protein 6.1 g/dL (6.4-8.2) L 09/12/24 04:54 Albumin 2.1 g/dL (3.4-5.0) L 09/12/24 04:54 Urine Urine Color Yellow (STRAW/YELL.) 09/05/24 20:35 Urine Appearance Clear (CLEAR) 09/05/24 20:35 Ur Specific [place] 1.010 (1.001-1.035) 09/05/24 20:35 Urine Protein 4+ (NEGATIVE) 09/05/24 20:35 Urine Glucose (UA) 4+ (NORMAL) 09/05/24 20:35 Urine Ketones Moderate (NEGATIVE) 09/05/24 20:35 Urine Occult Blood 4+ (NEG - TRACE) 09/05/24 20:35 Urine Nitrite Negative (NEGATIVE) 09/05/24 20:35 Urine Bilirubin Negative (NEGATIVE) 09/05/24 20:35 Urine Urobilinogen Normal (NORMAL) 09/05/24 20:35 Ur Leukocyte Esterase Negative (NEGATIVE) 09/05/24 20:35 Pulse Oximetry SpO2 results: 93% RA Attestation: I have reviewed the pertinent pulse oximetry results. Progress Note: A&P Assessment and Plan (1) Sepsis due to pneumonia: Assessment and Plan: Severe sepsis with elevated lactate. Continue guaifenesin, steroids, and DuoNebs. Lungs more clear today. Covid19- negative Per AU ID recommendations: STOP Zosyn. stop doxy 100 mg BID, Rocephin 2G IVPB Q24, and vancomycin- monitor trough level and ensure at goal of 15-20 zithromax 500 mg IV daily SCHEDULE AU ID consult again on 09/13/24 Urine cultures per AU not to be done as patient improving (2) Lactic acidosis: Assessment and Plan: fluids. abx. (3) Pleurisy: Assessment and Plan: resolved (4) Type 2 diabetes mellitus with hyperglycemia: Assessment and Plan: New DX. SSI for now. Will need meds at discharge. Qualifiers: Diabetes mellitus care home insulin use: without care home use Qualified Code(s): E11.65 - Type 2 diabetes mellitus with hyperglycemia (5) Hypoalbuminemia: Assessment and Plan: Albumin Human 25% 100 mls @ 60 mls/hr IV Q2H (6) Constipation: Assessment and Plan: Resolved Now diarrhea- Obtaining stool culture r/o CDiff Qualifiers: Constipation type: unspecified constipation type Qualified Code(s): K59.00 - Constipation, unspecified (7) Cocaine abuse: Assessment and Plan: discussed treatement options and patient states he will never use again and admits to using for years and multiple times per day and last use morning of admit to the hospital (8) Hypertension: Assessment and Plan: losartan 100 mg po daily Qualifiers: Hypertension type: primary hypertension Qualified Code(s): I10 - Essential (primary) hypertension (9) Cough: Assessment and Plan: tussionex bid prn Qualifiers: Cough type: acute Qualified Code(s): R05.1 - Acute cough (10) GERD with esophagitis: Assessment and Plan: protonix bid and GI cocktail prn Qualifiers: Esophagitis bleeding: with hemorrhage Qualified Code(s): K21.01 - Gastro-esophageal reflux disease with esophagitis, with bleeding (11) Accidental ingestion of toxic substance: Assessment and Plan: poison control consult and recommendations followed. Qualifiers: Encounter type: initial encounter Qualified Code(s): T65.91XA - Toxic effect of unspecified substance, accidental (unintentional), initial encounter (12) Diarrhea: Assessment and Plan: Stool Cultures r/o C-Diff. not completed as diarrhea resolved with the [place] salt stopped If C-Diff positive begin treatment with fidaxomicin 200 mg BID. Alternative treatment would be Vancomycin 125 mg orally 4 times daily. 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 Continue with IV hydration Continue with antibiotics IV + PO Stool Cultures Gallbladder Ultrasound Repeat Chest X-Ray CT ABDOMEN AND PELVIS W/ CONTRAST SCHEDULE AU ID consult again on 09/13/24 Fall Risk Details Bright Fall Scale Risk Level: Moderate Fall Risk Current Medications: Current Medications Acetaminophen (Acetaminophen 500 Mg Tablet) 500 mg PO Q6H PRN PRN Reason: Fever OF 100.5 OR GREATER Albuterol Sulfate (Ipratropium/Albuterol Sulfate 3 Ml Ampul.Neb) 3 ml INH RQ4 AFIA Last Admin: 09/12/24 07:15 Dose: Not Given Enoxaparin Sodium (Enoxaparin Sodium 40 Mg/0.4 Ml Syringe) 40 mg SUBQ DAILY [facility] Last Admin: 09/12/24 08:36 Dose: 40 mg Guaifenesin (Guaifenesin 100 Mg/5 Ml Liquid) 400 mg PO Q4H PRN PRN Reason: cough Last Admin: 09/11/24 16:36 Dose: 400 mg Guaifenesin (Guaifenesin/Dextromethorphan 20/200mg/10 Ml Solution) 10 ml PO BID PRN PRN Reason: cough Last Admin: 09/11/24 19:27 Dose: 10 ml Vancomycin/PEG/[place]/Lysine/Water (Vancomycin/Water 750 Mg) 750 mg in 150 mls @ 150 mls/hr IV Q24H [facility] Last Infusion: 09/11/24 21:31 Dose: Infused Sodium Chloride (Sodium Chloride) 1,000 mls @ 150 mls/hr IV CONT [facility] Last Admin: 09/12/24 02:25 Dose: 100 mls/hr Potassium Chloride (Potassium Cl 10 Meq/100 Ml [place]) 10 meq in 100 mls @ 100 mls/hr IV ONCE [facility] Last Infusion: 09/10/24 13:15 Dose: Infused Potassium Chloride (Potassium Cl 10 Meq/100 Ml [place]) 10 meq in 100 mls @ 100 mls/hr IV ONCE [facility] Ceftriaxone Sodium 2 gm/ (Sodium Chloride) 100 mls @ 200 mls/hr IV Q24H [facility] Azithromycin 500 mg/ Sodium (Chloride) 250 mls @ 250 mls/hr IV DAILY [facility] Ibuprofen (Ibuprofen 400 Mg Tablet) 600 mg PO Q6H PRN PRN Reason: Pain Last Admin: 09/12/24 02:25 Dose: 600 mg Insulin Human Regular (Insulin Regular, Human 100 Unit/Ml) 0 unit SUBQ ACHS PRN; Protocol PRN Reason: HYPERGLYCEMIA Last Admin: 09/11/24 19:49 Dose: 6 unit Mupirocin (Mupirocin 22 Gm Oint...G.) 5 gm TOPICAL Q12H [facility] Last Admin: 09/11/24 21:58 Dose: 5 gm Ondansetron HCl (Ondansetron Hcl/Pf 4 Mg/2 Ml Vial) 4 mg INJ Q4H PRN PRN Reason: Nausea vomiting Pantoprazole Sodium (Pantoprazole Sodium 40 Mg Tablet.Dr) 40 mg PO BID [facility] Last Admin: 09/12/24 08:36 Dose: 40 mg Sucralfate (Sucralfate 1 Gm/10 Ml Oral.Susp) 1 gm PO Q8H [facility] Last Admin: 09/12/24 04:18 Dose: Not Given Time Spent With Patient Time: Total time spent is greater than 50% in coordination of care (as documented) at patient's floor/unit and/or counseling patient: Time with patient: 25 - 35 minutes
[2024-09-12] MEDS: ALBUMIN HUMAN 25% 100 ML IV SCH (10:42)
[2024-09-13 07:44] LABS: Basophils%(Percent) Auto 0.1 (0.0-1.3); Eosinophils%(Percent) Auto 0.1 % (0.0-4.0)
[2024-09-13 07:46] LABS: Granulocytes % - Auto 80.2 % (49.1-73.1); Hematocrit 33.4 % (41.3-50.1); Mean Corpuscular Volume 89.8 fl (81.9-96.5); Monocytes #(Absolute)- Auto 4.2 (0.2-0.8); Monocytes %(Percent)- Auto 14.7 % (4.5-10.7); Platelet Count 169 K/uL (142-355)
[2024-09-13 07:49] LABS: White Blood Count 28.7 K/uL (3.7-9.6)
[2024-09-13 08:02] LABS: Potassium 2.5 mmol/L (3.6-5.2)
[2024-09-13] MEDS: FLUCONAZOLE-NACL 200 MG/100 ML 200 MG/100 ML PIGGYBACK IV SCH (09:25)
--- NOTE | 2024-09-13 12:17 | Progress Note ---
Progress Note: Subjective Subjective Interval history: Patient denies any pain or shortness of breath at time of exam and states had a good night and still refused CTA yesterday and a new IV site. patient remains afebrile and still tachycardia and hypoxia intermittantly. Patient will be evaluated by [facility] for possible transfer. Patient is not feeling well this morning, agrees to plan for transfer to an accepting facility for a higher level of care. Exam Exam: Patient in low byrne's position upon entering room for exam. Constitutional: abnormal general appearance (disheveled), (chronically ill) and (appears older than stated age), no apparent distress, abnormal body habitus (cachectic), no limitations and alert Vital Signs - 24 hr 09/12/24 11:22 09/12/24 11:22 09/12/24 11:50 Temperature 97.6 F Pulse Rate [Brachi al] 104 H Respiratory Rate 19 Blood Pressure [Le ft Arm] 130/67 Pulse Oximetry 98 98 94 L Oxygen Delivery Me thod Nasal Cannula Room Air Oxygen Flow Rate 2 Fraction of Inspir ed Oxygen 09/12/24 15:11 09/12/24 16:00 09/12/24 19:55 Temperature 98.7 F Pulse Rate [Brachi al] 102 H Respiratory Rate 16 Blood Pressure [Le ft Arm] 127/64 Pulse Oximetry 95 99 96 Oxygen Delivery Me thod Room Air Oxygen Flow Rate Fraction of Inspir ed Oxygen 09/12/24 19:55 09/12/24 20:00 09/13/24 00:00 Temperature 99.5 F 100.2 F H Pulse Rate [Brachi al] 98 H 88 Respiratory Rate 16 16 Blood Pressure [Le ft Arm] 152/77 146/75 Pulse Oximetry 96 96 94 L Oxygen Delivery Me thod Nasal Cannula Room Air Oxygen Flow Rate 2 Fraction of Inspir ed Oxygen 28 09/13/24 04:00 09/13/24 05:25 09/13/24 07:43 Temperature 100.8 F H Pulse Rate [Brachi al] 91 H Respiratory Rate 16 Blood Pressure [Le ft Arm] 143/77 Pulse Oximetry 100 92 L 94 L Oxygen Delivery Me thod Room Air Oxygen Flow Rate Fraction of Inspir ed Oxygen 09/13/24 07:43 09/13/24 08:00 Temperature 98.7 F Pulse Rate [Brachi al] 97 H Respiratory Rate 18 Blood Pressure [Le ft Arm] 131/77 Pulse Oximetry 94 L 90 L Oxygen Delivery Me thod Nasal Cannula Room Air Oxygen Flow Rate 2 Fraction of Inspir ed Oxygen HENMT: normocephalic, head/scalp atraumatic, hearing grossly normal bilaterally and external ears normal Eyes: PERRL, EOMs intact bilaterally, conjunctivae normal, scleral icterus noted and papilledema noted Neck/C-Spine: visual inspection normal, trachea midline, cervical spine nontender, abnormal cervical ROM noted, supple, no meningeal signs, thyroid normal and no carotid bruits Lymph: no lymphadenopathy noted and no lymphedema noted Chest: inspection of chest normal and palpation of chest normal Respiratory: breath sounds equal bilaterally, abnormal respiratory effort (diminished in the bases) (labored), clear to auscultation bilaterally (diminished bilateral bases), wheezing noted (scattered wheezes), no retractions and no use of accessory muscles Cardiovascular: normal heart rate noted, regular rhythm noted, no gallop, no rub and no murmur Gastrointestinal: abdomen normal to inspection, abdomen soft to palpation, nontender to palpation, nondistended and normoactive bowel sounds Genitourinary: no CVA tenderness, bladder normal to palpation and external appearance abnormal (possible "cut" on penile area) Back/Pelvis: spine normal to inspection, no thoracic spine tenderness, thoracic spine ROM normal and lumbar spine ROM normal Extremities: normal to inspection, normal to palpation, no tenderness and full ROM Neurology: neuroscientist II-XII 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 Skin: skin color normal, no rash, no lesions, no ecchymosis noted, wound(s) noted (penile abrasion), no lacerations and skin turgor abnormal (ashy) Reports (tenting) Progress Note: Objective Labs Labs: CBC WBC 28.7 K/uL (3.7-9.6) H* 09/13/24 07:35 RBC 3.7 M/uL (4.40-5.80) L 09/13/24 07:35 Hgb 10.9 gm/dL (14.0-17.4) L 09/13/24 07:35 Hct 33.4 % (41.3-50.1) L 09/13/24 07:35 MCV 89.8 fl (81.9-96.5) 09/13/24 07:35 MCH 29.2 pg (27.6-33.7) 09/13/24 07:35 MCHC 32.5 g/dl (33.0-35.7) L 09/13/24 07:35 RDW 12.9 % (11.0-14.8) 09/13/24 07:35 Plt Count 169 K/uL (142-355) 09/13/24 07:35 MPV 11.6 fl (6.0-10.4) H 09/13/24 07:35 Gran % 80.2 % (49.1-73.1) H 09/13/24 07:35 Lymph % (Auto) 4.9 % (17.6-39.05) L 09/13/24 07:35 [place] % (Auto) 14.7 % (4.5-10.7) H 09/13/24 07:35 Eos % (Auto) 0.1 % (0.0-4.0) 09/13/24 07:35 Baso % (Auto) 0.1 (0.0-1.3) 09/13/24 07:35 Lymph # (Auto) 1.4 (0.8-2.9) 09/13/24 07:35 [place] # (Auto) 4.2 (0.2-0.8) H 09/13/24 07:35 Eos # (Auto) 0.0 (0.0-0.3) 09/13/24 07:35 Baso # (Auto) 0.0 (0.0-0.1) 09/13/24 07:35 Absolute Gran (auto) 23.0 (2.0-6.2) H 09/13/24 07:35 BMP Sodium 140 mmol/L (136-145) 09/13/24 07:35 Potassium 2.5 mmol/L (3.6-5.2) L 09/13/24 07:35 Chloride 107.0 mmol/L (98-107) 09/13/24 07:35 Carbon Dioxide 19 mmol/L (21-32) L 09/13/24 07:35 Anion Gap 14.0 mEq/L (4-14) 09/13/24 07:35 BUN 8 mg/dL (7-18) 09/13/24 07:35 Creatinine 1.2 mg/dL (0.6-1.3) 09/13/24 07:35 Estimated GFR 69.7 (>59.9) 09/13/24 07:35 Glucose 183 mg/dL (70-110) H 09/13/24 07:35 Hemoglobin A1c 8.0 % (4.8-6.0) H 09/05/24 18:50 Calcium 7.6 mg/dL (8.5-10.1) L 09/13/24 07:35 Phosphorus 2.5 mg/dL (2.5-4.9) 09/12/24 04:54 Magnesium 1.3 mg/dL (1.8-2.4) L 09/13/24 07:35 Total Bilirubin 0.69 mg/dL (0.0-1.0) 09/13/24 07:35 AST 29 U/L (15-37) 09/13/24 07:35 ALT 36 U/L (30-65) 09/13/24 07:35 Alkaline Phosphatase 45 U/L (50-136) L 09/13/24 07:35 Total Protein 6.2 g/dL (6.4-8.2) L 09/13/24 07:35 Albumin 2.4 g/dL (3.4-5.0) L 09/13/24 07:35 Liver Function Total Bilirubin 0.69 mg/dL (0.0-1.0) 09/13/24 07:35 AST 29 U/L (15-37) 09/13/24 07:35 ALT 36 U/L (30-65) 09/13/24 07:35 Alkaline Phosphatase 45 U/L (50-136) L 09/13/24 07:35 Total Protein 6.2 g/dL (6.4-8.2) L 09/13/24 07:35 Albumin 2.4 g/dL (3.4-5.0) L 09/13/24 07:35 Urine Urine Color Yellow (STRAW/YELL.) 09/05/24 20:35 Urine Appearance Clear (CLEAR) 09/05/24 20:35 Ur Specific [place] 1.010 (1.001-1.035) 09/05/24 20:35 Urine Protein 4+ (NEGATIVE) 09/05/24 20:35 Urine Glucose (UA) 4+ (NORMAL) 09/05/24 20:35 Urine Ketones Moderate (NEGATIVE) 09/05/24 20:35 Urine Occult Blood 4+ (NEG - TRACE) 09/05/24 20:35 Urine Nitrite Negative (NEGATIVE) 09/05/24 20:35 Urine Bilirubin Negative (NEGATIVE) 09/05/24 20:35 Urine Urobilinogen Normal (NORMAL) 09/05/24 20:35 Ur Leukocyte Esterase Negative (NEGATIVE) 09/05/24 20:35 Progress Note: A&P Assessment and Plan (1) Sepsis due to pneumonia: Assessment and Plan: Severe sepsis with elevated lactate. Continue guaifenesin, steroids, and DuoNebs. Lungs more clear today. Covid19- negative Per [facility] ID recommendations: STOP Zosyn. stop doxy 100 mg BID, Rocephin 2G IVPB Q24, and vancomycin- monitor trough level and ensure at goal of 15-20 zithromax 500 mg IV daily SCHEDULE AU ID consult again on 09/13/24 Urine cultures per AU not to be done as patient improving (2) Lactic acidosis: Assessment and Plan: fluids. abx. (3) Pleurisy: Assessment and Plan: resolved (4) Type 2 diabetes mellitus with hyperglycemia: Assessment and Plan: New DX. SSI for now. Will need meds at discharge. Qualifiers: Diabetes mellitus chcf insulin use: without bed bug exterminator use Qualified Code(s): E11.65 - Type 2 diabetes mellitus with hyperglycemia (5) Hypoalbuminemia: Assessment and Plan: Albumin Human 25% 100 mls @ 60 mls/hr IV Q2H (6) Constipation: Assessment and Plan: Resolved Now diarrhea- Obtaining stool culture r/o CDiff Qualifiers: Constipation type: unspecified constipation type Qualified Code(s): K59.00 - Constipation, unspecified (7) Cocaine abuse: Assessment and Plan: discussed treatement options and patient states he will never use again and admits to using for years and multiple times per day and last use morning of admit to the hospital (8) Hypertension: Assessment and Plan: losartan 100 mg po daily Qualifiers: Hypertension type: primary hypertension Qualified Code(s): I10 - Essential (primary) hypertension (9) Cough: Assessment and Plan: tussionex bid prn Qualifiers: Cough type: acute Qualified Code(s): R05.1 - Acute cough (10) GERD with esophagitis: Assessment and Plan: protonix bid and GI cocktail prn Qualifiers: Esophagitis bleeding: with hemorrhage Qualified Code(s): K21.01 - Gastro-esophageal reflux disease with esophagitis, with bleeding (11) Accidental ingestion of toxic substance: Assessment and Plan: poison control consult and recommendations followed. Qualifiers: Encounter type: initial encounter Qualified Code(s): T65.91XA - Toxic effect of unspecified substance, accidental (unintentional), initial encounter (12) Diarrhea: Assessment and Plan: Stool Cultures r/o C-Diff. not completed as diarrhea resolved with the Epson salt stopped If C-Diff positive begin treatment with fidaxomicin 200 mg BID. Alternative treatment would be Vancomycin 125 mg orally 4 times daily. 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 Continue with IV hydration Continue with antibiotics IV + PO Stool Cultures Gallbladder Ultrasound Repeat Chest X-Ray CT ABDOMEN AND PELVIS W/ CONTRAST SCHEDULE AU ID consult again on 09/13/24 Fall Risk Details Bright Fall Scale Risk Level: Moderate Fall Risk Current Medications: Current Medications Albuterol Sulfate (Ipratropium/Albuterol Sulfate 3 Ml Ampul.Neb) 3 ml INH RQ4 AFIA Last Admin: 09/13/24 09:18 Dose: Not Given Enoxaparin Sodium (Enoxaparin Sodium 40 Mg/0.4 Ml Syringe) 40 mg SUBQ DAILY AFIA Last Admin: 09/13/24 08:23 Dose: 40 mg Guaifenesin (Guaifenesin 100 Mg/5 Ml Liquid) 400 mg PO Q4H PRN PRN Reason: cough Last Admin: 09/11/24 16:36 Dose: 400 mg Guaifenesin (Guaifenesin/Dextromethorphan 20/200mg/10 Ml Solution) 10 ml PO BID PRN PRN Reason: cough Last Admin: 09/11/24 19:27 Dose: 10 ml Sodium Chloride (Sodium Chloride) 1,000 mls @ 150 mls/hr IV CONT AFIA Last Admin: 09/13/24 00:45 Dose: 100 mls/hr Potassium Chloride (Potassium Cl 10 Meq/100 Ml [place]) 10 meq in 100 mls @ 100 mls/hr IV ONCE AFIA Last Infusion: 09/10/24 13:15 Dose: Infused Potassium Chloride (Potassium Cl 10 Meq/100 Ml [place]) 10 meq in 100 mls @ 100 mls/hr IV ONCE AFIA Ceftriaxone Sodium 2 gm/ (Sodium Chloride) 100 mls @ 200 mls/hr IV Q24H [facility] Last Admin: 09/13/24 09:25 Dose: 200 mls/hr Azithromycin 500 mg/ Sodium (Chloride) 250 mls @ 250 mls/hr IV DAILY [facility] Last Admin: 09/13/24 08:22 Dose: 250 mls/hr Vancomycin/PEG/NADA/Lysine/Water (Vancomycin/Water 1.25 Gm) 1.25 gm in 250 mls @ 150 mls/hr IV Q24H AFIA Fluconazole (Fluconazole-Nacl 200 Mg/100 Ml) 200 mg in 100 mls @ 100 mls/hr IV Q24H [facility] Last Admin: 09/13/24 09:25 Dose: 100 mls/hr Ibuprofen (Ibuprofen 400 Mg Tablet) 600 mg PO Q6H PRN PRN Reason: Pain Last Admin: 09/13/24 05:42 Dose: 600 mg Insulin Human Regular (Insulin Regular, Human 100 Unit/Ml) 0 unit SUBQ ACHS PRN; Protocol PRN Reason: HYPERGLYCEMIA Last Admin: 09/12/24 21:46 Dose: 8 unit Mupirocin (Mupirocin 22 Gm Oint...G.) 5 gm TOPICAL Q12H [facility] Last Admin: 09/12/24 21:45 Dose: 5 gm Ondansetron HCl (Ondansetron Hcl/Pf 4 Mg/2 Ml Vial) 4 mg INJ Q4H PRN PRN Reason: Nausea vomiting Pantoprazole Sodium (Pantoprazole Sodium 40 Mg Tablet.Dr) 40 mg PO BID [facility] Last Admin: 09/13/24 08:23 Dose: 40 mg Sucralfate (Sucralfate 1 Gm/10 Ml Oral.Susp) 1 gm PO Q8H AFIA Last Admin: 09/13/24 04:56 Dose: Not Given Time Spent With Patient Time: Total time spent is greater than 50% in coordination of care (as documented) at patient's floor/unit and/or counseling patient: Time with patient: greater than 35 minutes
[2024-09-13] MEDS: VANCOMYCIN/WATER 1.25 GM 1.25 GM/250 ML PIGGYBACK IV SCH (12:50)
[2024-09-13 19:04] VITALS: BP 131/67; PULSE 113; RESP 19; TEMP 99.3
--- NOTE | 2024-09-14 16:22 | Discharge Summary ---
DS: Providers Provider Date of admission: 09/06/24 00:04 Primary care physician: NO PCP Provider Admitting clinician: Rc [place]edo Attending physician on admission: Jose Monge Attending physician on discharge: Toshia Pennignton Discharging clinician: sofia Anticipated date of discharge: 09/14/24 DS: Diagnosis Discharge Diagnosis (1) Sepsis due to pneumonia: (2) Lactic acidosis: (3) Pleurisy: (4) Type 2 diabetes mellitus with hyperglycemia: Qualifiers: Diabetes mellitus tow picker insulin use: without mcc use Qualified Code(s): E11.65 - Type 2 diabetes mellitus with hyperglycemia (5) Hypoalbuminemia: (6) Constipation: Qualifiers: Constipation type: unspecified constipation type Qualified Code(s): K59.00 - Constipation, unspecified (7) Cocaine abuse: (8) Hypertension: Qualifiers: Hypertension type: primary hypertension Qualified Code(s): I10 - Essential (primary) hypertension (9) Cough: Qualifiers: Cough type: acute Qualified Code(s): R05.1 - Acute cough (10) GERD with esophagitis: Qualifiers: Esophagitis bleeding: with hemorrhage Qualified Code(s): K21.01 - Gastro-esophageal reflux disease with esophagitis, with bleeding (11) Accidental ingestion of toxic substance: Qualifiers: Encounter type: initial encounter Qualified Code(s): T65.91XA - Toxic effect of unspecified substance, accidental (unintentional), initial encounter (12) Diarrhea: Qualifiers: Diarrhea type: functional diarrhea Qualified Code(s): K59.1 - Functional diarrhea (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 Jonathan Tellez. DS: Summary Hospital Course Hospital Course: Patient is 55 years old male with no significant past medical history, Patient is a poor historian. Patient appears weak malnourished and unable to participate appropriately in my conversation. He states it hurts when he coughs, mucus is being expelled, experiencing flu symptoms, and provider observed wheezing on inspiratory and expiratory. Lab work reflects septic pneumonia and lactic acidosis. Admitted patient to med/surg as inpatient for treatment. Day 1 of hospital stay, patient is no longer getting up and walking to restroom, he has a brief on and (3) urinals surrounding his bed. Patient states he is not able to get up and move fast enough to make it to the restroom without having an accident. Spouse of patient was present and voiced concerns of an abrasion on patient's penis. The provider and nurse uncovered the area of concern and examined. Abrasion looked like a small "cut" with some red irritation. Provider stated this had to have been something that happened prior to his admission to the hospital. Provider put orders in for area of concern to be cleaned and medicated daily. Day 2 of hospital stay, patient feels about the same. He is having a productive - deep cough, mild dyspnea, elevated HR and WBC, and repeat Chest X-Ray for bilateral pneumonia. Day 3 of hospital stay, pt reports improved chest congestion, but still hurting and hard to breathe deeply. Cough is more productive but less frequent. Sugar running higher and has agreed to SSI. Tolerating Decadron PO and DuoNebs. WBCs up further with anion gap. Sodium normalized. Day 4 of hospital stay, patient is more alert and oriented, and feeling better today. Chief complaint was loose stools. Patient ate epsom salt with melatonin and other products in it. He is now receiving Pantoprazole Sodium for heart burn. [facility] consult for infectious disease was requested. Patient refused CTA due to not wanting a new IV. Day 5 of hospital stay, patient continues to receive electrolyte replenishment for depleted albumin and potassium. Ultrasound of Gallbladder was ordered and repeat of chest X-Ray. Day 6 of hospital stay, patient ambulated down the hallway with staff. He continues to report dyspnea on exertion and "soreness in chest, shoulders, and upper back from coughing." [facility] has followed up every day since initial telehealth consultation with patient. Day 7 of hospital stay, patient denies any pain or shortness of breath at time of exam and states he had a good night. He continues to decline CTA and new IV site. Patient remains afebrile and still tachycardia and hypoxia intermittently. He will be evaluated by [facility] for possible transfer. Patient agrees to plan for transfer to an accepting facility for a higher level of care. Day 8 of hospital stay, patient was accepted by Dr. Jonathan Tellez at [facility] for transfer. Patient was prepared for transfer and transportation was arranged. Patient left in the auxiliary engineer for higher level of care facility. Status at Discharge Functional status at discharge: independent ambulation Overall status at discharge: patient is not back to baseline Time Spent with Patient Time attestation: Total time spent providing and/or coordinating discharge services: Exam Exam: Patient transferred to [facility] for higher level of care. Constitutional: abnormal general appearance (disheveled), (chronically ill) and (appears older than stated age), no apparent distress, abnormal body habitus (cachectic), no limitations and alert Vital Signs - 24 hr 09/13/24 16:00 09/13/24 19:03 09/13/24 20:15 Temperature 98.8 F 99.3 F Pulse Rate [Brachi al] 114 H 113 H Respiratory Rate 21 19 Blood Pressure [Le ft Arm] 146/78 131/67 Pulse Oximetry 90 L 91 L 92 L Oxygen Delivery Me thod Room Air Room Air Oxygen Flow Rate Fraction of Inspir ed Oxygen 09/13/24 20:15 Temperature Pulse Rate [Brachi al] Respiratory Rate Blood Pressure [Le ft Arm] Pulse Oximetry 92 L Oxygen Delivery Me thod Nasal Cannula Oxygen Flow Rate 2 Fraction of Inspir ed Oxygen 28 HENMT: normocephalic, head/scalp atraumatic, hearing grossly normal bilaterally and external ears normal Eyes: PERRL, EOMs intact bilaterally, conjunctivae normal, scleral icterus noted and papilledema noted Neck/C-Spine: visual inspection normal, trachea midline, cervical spine nontender, abnormal cervical ROM noted, supple, no meningeal signs, thyroid normal and no carotid bruits Lymph: no lymphadenopathy noted and no lymphedema noted Chest: inspection of chest normal and palpation of chest normal Respiratory: breath sounds equal bilaterally, abnormal respiratory effort (diminished in the bases) (labored), clear to auscultation bilaterally (diminished bilateral bases), wheezing noted (scattered wheezes), no retractions and no use of accessory muscles Cardiovascular: normal heart rate noted, regular rhythm noted, no gallop, no rub and no murmur Gastrointestinal: abdomen normal to inspection, abdomen soft to palpation, nontender to palpation, nondistended and normoactive bowel sounds Genitourinary: no CVA tenderness, bladder normal to palpation and external appearance abnormal (possible "cut" on penile area) Back/Pelvis: spine normal to inspection, no thoracic spine tenderness, thoracic spine ROM normal and lumbar spine ROM normal Extremities: normal to inspection, normal to palpation, no tenderness and full ROM Neurology: pole shaver II-XII 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 Skin: skin color normal, no rash, no lesions, no ecchymosis noted, wound(s) noted (penile abrasion), no lacerations and skin turgor abnormal (ashy) Reports (tenting) DS: Data Data Completed and Pending Labs on day of discharge: Preliminary micro results at discharge 09/13/24 09:10 Blood Culture - Preliminary Blood - Venous Draw (Peripheral) 09/13/24 14:09 Respiratory Culture - Preliminary Sputum - Induced 09/13/24 09:10 Blood Culture - Preliminary Blood - Venous Draw (Peripheral) Imaging CT scan - abdomen: Radiologist's impression: CT ABDOMEN PELVIS WO CON Date of Service: 09/05/24 HISTORY: Abdominal pain, diarrhea COMPARISON: June 27, 2021 TECHNIQUE: Non-contrasted axial CT images of the abdomen and pelvis were obtained and reformatted into coronal and sagittal planes for further evaluation. Radiation dose: 523.1 mGy-cm total DLP FINDINGS: Diffuse bronchial wall thickening. Infiltrate in the lower aspect of the left lung. Few tiny patchy areas of airspace disease at the periphery of the right lower lobe. Stomach appears normal. Cyst in the left hepatic lobe. Otherwise, unremarkable appearance of the liver. Patchy low-attenuation areas in the spleen; nonspecific. Pancreas and adrenal glands are unremarkable. Gallbladder appears normal. No intra or extrahepatic biliary dilatation. Unremarkable appearance of the kidneys. No hydronephrosis, hydroureter or ureteral calculus. Unremarkable appearance of the urinary bladder. Normal appearance of the small and large bowel. Nonspecific enlargement of the prostate gland. No evidence of acute appendicitis. No pneumoperitoneum. No significant fluid collection. No adenopathy. No acute osseous abnormality. Chronic pars defects at L5 with grade 1 anterolisthesis. IMPRESSION: 1. Nonspecific patchy areas of decreased attenuation in the spleen. Findings could represent a normal variant appearance but could be further evaluated for areas of ischemia with a contrast-enhanced study. 2. Diffuse bronchial wall thickening. Infiltrate in the lower aspect of the left lung. Few tiny patchy areas of airspace disease at the periphery of the right lower lobe. Findings could represent the sequela of an atypical/viral infectious process or multifocal pneumonia. 3. Nonspecific enlargement of the prostate gland. Chest x-ray: Radiologist's impression: XR CHEST 2V Date of Service: 09/05/24 HISTORY: SOB, COUGH; CV/NB COMPARISON: 12/01/2022 FINDINGS: The trachea is midline. The cardiac silhouette is unremarkable . The lungs are clear without focal infiltrate or effusion. The bony thorax is unremarkable. IMPRESSION: Normal chest XR CHEST 2V Date of Service: 09/07/24 HISTORY: pneumoniapneumonia; mb COMPARISON: September 05, 2024 FINDINGS: The trachea is midline. The cardiac silhouette is normal in size. Patchy infilt rates are at both lung bases. The rest of lungs are clear without focal infiltrate or effusion. The bony thorax is unremarkable. IMPRESSION: Bibasilar bronchopneumonia. XR CHEST 2V Date of Service: 09/11/24 HISTORY: pneumonia; . COMPARISON STUDY: 09/07/2024 TECHNIQUE: Two views FINDINGS: Heart size is normal. New infiltrate in the right upper lobe. Bibasilar infiltrates unchanged. No pneumothorax or other change noted. Technical artifacts overlie the chest. IMPRESSION: No change in bibasilar infiltrates. Follow-up recommended. New infiltrate in the right upper lobe. Two-view chest Date of Service: 09/13/24 HISTORY: Follow-up pneumonia COMPARISON: 09/07/2024 FINDINGS: Heart size is normal. Audrey are normal. Lungs are generally hyperinflated. Alveolar infiltrate is present throughout the right upper lobe unchanged from the prior examination. Left perihilar upper lobe infiltrate now present. Bilateral lower lobe infiltrates unchanged. No pleural effusions or pneumothoraces identified. Bony thorax is unremarkable. IMPRESSION: No change right upper lobe infiltrate New patchy left upper lobe perihilar infiltrate No change bilateral lower lobe infiltrates Hyperinflation consistent with COPD in the appropriate clinical setting. CT scan - chest: Radiologist's impression: CT ANGIO CHEST PE PROTOCOL Date of Service: 09/05/24 HISTORY: Shortness of breath COMPARISON: Chest radiograph series from September 05, 2024 TECHNIQUE: Axial CT images of the chest were obtained after the administration of IV contrast utilizing a CTA protocol. 3D MIPS were performed and reviewed for further evaluation. Radiation dose: 444.2 mGy-cm total DLP FINDINGS: No significant pericardial effusion. No mediastinal or hilar lymphadenopathy. Aorta is normal in caliber without dissection. Pulmonary arteries are normal in caliber without filling defects to suggest a pulmonary embolus. Airways are widely patent. Thyroid appears normal. No pleural effusion. Mild centrilobular emphysema. Centrilobular infiltrates in the middle lobe, lingula and lower lobes; [id number]. No pneumothorax. No concerning lung parenchymal lesion identified. Patchy low-attenuation areas in the spleen; nonspecific. Otherwise, the imaged portion of the upper abdomen is unremarkable. No acute osseous abnormality. IMPRESSION: 1. No pulmonary embolus identified. 2. Centrilobular infiltrates in the middle lobe, lingula and lower lobes; [id number]. Findings could represent an atypical/viral infectious process. 3. Mild centrilobular emphysema. 4. Nonspecific patchy areas of decreased attenuation in the spleen. Findings could represent a normal variant appearance but could be further evaluated for areas of ischemia with a dedicated multiphase contrast-enhanced study of the upper abdomen. Abdominal x-ray: Radiologist's impression: XR ABDOMEN 1V Date of Service: 09/07/24 HISTORY: abdominal tendernessabdominal tenderness; mb COMPARISON: None. TECHNIQUE: A supine view was acquired. FINDINGS: There is a nonobstructive, nonspecific bowel gas pattern. No pathologic calcifications are noted. The osseous structures are intact. IMPRESSION: Nonobstructive, nonspecific bowel gas pattern. Discharge Plan Discharge Disposition: [facility] Condition: Other Discharge Medications: No Action No Known Home Medication Discharge Orders: Discharge Order (Routine); Ordered 09/13/24 Ordered By: [facility] Course: Patient is 55 years old male with no significant past medical history, Patient is a poor historian. Patient appears weak malnourished and unable to participate appropriately in my conversation. He states it hurts when he coughs, mucus is being expelled, experiencing flu symptoms, and provider observed wheezing on inspiratory and expiratory. Lab work reflects septic pneumonia and lactic acidosis. Admitted patient to med/surg as inpatient for treatment. Day 1 of hospital stay, patient is no longer getting up and walking to restroom, he has a brief on and (3) urinals surrounding his bed. Patient states he is not able to get up and move fast enough to make it to the restroom without having an accident. Spouse of patient was present and voiced concerns of an abrasion on patient's penis. The provider and nurse uncovered the area of concern and examined. Abrasion looked like a small "cut" with some red irritation. Provider stated this had to have been something that happened prior to his admission to the hospital. Provider put orders in for area of concern to be cleaned and medicated daily. Day 2 of hospital stay, patient feels about the same. He is having a productive - deep cough, mild dyspnea, elevated HR and WBC, and repeat Chest X-Ray for bilateral pneumonia. Day 3 of hospital stay, pt reports improved chest congestion, but still hurting and hard to breathe deeply. Cough is more productive but less frequent. Sugar running higher and has agreed to SSI. Tolerating Decadron PO and DuoNebs. WBCs up further with anion gap. Sodium normalized. Day 4 of hospital stay, patient is more alert and oriented, and feeling better today. Chief complaint was loose stools. Patient ate epsom salt with melatonin and other products in it. He is now receiving Pantoprazole Sodium for heart burn. [facility] consult for infectious disease was requested. Patient refused CTA due to not wanting a new IV. Day 5 of hospital stay, patient continues to receive electrolyte replenishment for depleted albumin and potassium. Ultrasound of Gallbladder was ordered and repeat of chest X-Ray. Day 6 of hospital stay, patient ambulated down the hallway with staff. He continues to report dyspnea on exertion and "soreness in chest, shoulders, and upper back from coughing." [facility] has followed up every day since initial telehealth consultation with patient. Day 7 of hospital stay, patient denies any pain or shortness of breath at time of exam and states he had a good night. He continues to decline CTA and new IV site. Patient remains afebrile and still tachycardia and hypoxia intermittently. He will be evaluated by [facility] for possible transfer. Patient agrees to plan for transfer to an accepting facility for a higher level of care. Day 8 of hospital stay, patient was accepted by Dr. Jonathan Tellez at [facility] for transfer. Patient was prepared for transfer and transportation was arranged. Patient left in the auxiliary engineer for higher level of care facility. Interventions: Discharge Assessment Last Done: 09/13/24 20:45 Follow-Ups: Provider,NO PCP [Primary Care Provider] - Discharge Date/Time: 09/13/24 20:45
== END 2024-09-13 20:45 | disposition short-term general hospital (02) | DRG 871 ==
LOC: MS 16:58 → ED 16:58 → OBSVTOIN 09-06 00:04 → MS 09-06 01:18
PROVIDERS: ADMIT Physician Assistant; ATTEND Internal Medicine
DX: D73.5 Infarction of spleen; R10.9 Unspecified abdominal pain; N17.8 Other acute kidney failure; K59.00 Constipation, unspecified; R06.02 Shortness of breath; R09.1 Pleurisy; A41.9 Sepsis, unspecified organism; R09.89 Other specified symptoms and signs involving the circulatory and respiratory systems; D72.828 Other elevated white blood cell count; T65.91XA Toxic effect of unspecified substance, accidental (unintentional), initial encounter; E11.65 Type 2 diabetes mellitus with hyperglycemia; I10 Essential (primary) hypertension; E87.20 Acidosis, unspecified; R05.1 Acute cough; F14.10 Cocaine abuse, uncomplicated; Z72.0 Tobacco use; E88.09 Other disorders of plasma-protein metabolism, not elsewhere classified; K59.1 Functional diarrhea; J18.9 Pneumonia, unspecified organism; E87.5 Hyperkalemia; K21.01 Gastro-esophageal reflux disease with esophagitis, with bleeding